=== PATIENT | female | born 1995 | race Caucasian/White ===

== ENCOUNTER 2019-05-08 21:10 | Emergency (ER) | payer BC ==
--- NOTE | 2019-05-08 21:36 | ERPHSYRPT ---
- History of Present Illness Time Seen by Provider: 05/08/19 21:31 Source: patient Exam Limitations: no limitations Patient Subjective Stated Complaint: pt states she has had a toothache since sunday. pain in rt lower jaw radiating up to ear. states she has been having pain in her stomach 04/02- thinks she has taken too much ibuprofen. states she has taken 2-3 200mg tabs at a time, unknonw frequency, total of 20 tabs over last 3 days. Triage Nursing Assessment: pt alert and oriented, answers questions approp. pt ambulatory with staedy gait noted. respirations nonlabored with lungs cta. abd soft and nontender with bowel sounds present. Physician History: 24 y/o white female presents with 3 day h/o worsening dental pain right side. pt has been taking ibuprofen for last 3 days. denies fever. Timing/Duration: gradual onset Severity: moderate ENT Location: dental (right upper and lower back molars) Prearrival Treatment: over the counter meds (ibuprofen only. last dose this a,m) Associated Symptoms: tooth pain Allergies/Adverse Reactions: No Known Drug Allergies Allergy (Verified 05/08/19 21:27) Hx Tetanus, Diphtheria Vaccination/Date Given: No Hx Influenza Vaccination/Date Given: No Hx Pneumococcal Vaccination/Date Given: No Immunizations Up to Date: No - Review of Systems Constitutional: No Symptoms Eyes: No Symptoms Ears, Nose, & Throat: Other (dental pain) Respiratory: No Symptoms Cardiac: No Symptoms Abdominal/Gastrointestinal: No Symptoms Genitourinary Symptoms: No Symptoms Musculoskeletal: No Symptoms Skin: No Symptoms Neurological: No Symptoms Psychological: No Symptoms Endocrine: No Symptoms Hematologic/Lymphatic: No Symptoms Immunological/Allergic: No Symptoms All Other Systems: Reviewed and Negative - Past Medical History Pertinent Past Medical History: No Neurological History: No Pertinent History ENT History: No Pertinent History Respiratory History: Asthma Endocrine Medical History: No Pertinent History, Hypothyroidism Musculoskeletal History: No Pertinent History GI Medical History: No Pertinent History History: No Pertinent History Female Reproductive Disorders: No Pertinent History Other Medical History: polycycstic ovarys,ear problems - Past Surgical History Past Surgical History: Yes Neuro Surgical History: Other Cardiac: No Pertinent History Respiratory: No Pertinent History Gastrointestinal: No Pertinent History Genitourinary: No Pertinent History Musculoskeletal: No Pertinent History Female Surgical History: No Pertinent History Other Surgical History: mine ear clostomia, removal of bone , reconstruction surgery. - Social History Smoking Status: Never smoker Exposure to second hand smoke: No Alcohol Use: None Drug Use: none Patient Lives Alone: No Significant Family History: no pertinent family hx - Female History Hx Last Menstrual Period: irregular Hx Now: No - Nursing Vital Signs Nursing Vital Signs: Initial Vital Signs Temperature 98.5 F 05/08/19 21:16 Pulse Rate 98 H 05/08/19 21:16 Respiratory Rate 18 05/08/19 21:16 Blood Pressure 140/84 05/08/19 21:16 O2 Sat by Pulse Oximetry 98 05/08/19 21:16 Pain Scale Pain Intensity 7 - Physical Exam General Appearance: no apparent distress, alert, anxiety Eye Exam: bilateral eye: normal inspection, PERRL, EOMI Ear Exam: bilateral ear: auricle normal, canal normal, TM normal Nasal Exam: normal inspection Throat Exam: normal, pharynx normal, dental tenderness (right upper and lower back molars) Neck Exam: normal inspection, non-tender, supple, full range of motion, trachea midline Cardiovascular/Respiratory Exam: chest non-tender Abdominal Exam: non-tender Neurologic Exam: alert, oriented x 3, cooperative, 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 follow up with dentist for definitive care. do not take your take pain medications until you are home tonight. Forms: Work/School Release Form Prescriptions: Cephalexin Mh 500 mg [Keflex 500 mg] 500 mg PO TID #21 capsule
[2019-05-08] MEDS ORDERED: NORCO 5/325 MG ONE (21:53)
[2019-05-08] MEDS ORDERED: KEFLEX 500 MG ONE (21:53)
[2019-05-08] MEDS: NORCO 5/325 MG PO ONE (21:57)
[2019-05-08] MEDS: KEFLEX 500 MG PO ONE (21:57)
[2019-05-08 22:23] VITALS: BP 112/57; PULSE 84; O2SAT 97
== END 2019-05-08 22:30 | disposition home or self-care (01) ==
LOC: ED 21:10
DX: K08.89 Other specified disorders of teeth and supporting structures (principal)
CPT/HCPCS: 99283; A9270-GY

== ENCOUNTER 2021-08-22 22:54 | Emergency (ER) | payer BC, OTHER ==
[2021-08-22 23:10] VITALS: O2SAT 98
--- NOTE | 2021-08-22 23:16 | ERPHSYRPT ---
- History of Present Illness Source: patient Exam Limitations: no limitations Patient Subjective Stated Complaint: pt states "I have had a headache since Sunday." Triage Nursing Assessment: pt ambulated into the er; pt is axo x4; c/o headache; pt states 5/10 pain to head; pt states that there was an outbreak of covid at her place of enployment; pupils 3 mm and PERRL; strong BLE pushes; strong BUE process plant operator; pt states she has had the chills all day; pt has dry hacking cough; pt states body aches; diaphoretic; vitals wnl Physician History: 26 yo wf w cough/myalgias/WELDON/subjective fever/nausea wo vomiting/diarrhea/coryza. Pt has mild dysuria and thinks she is possibly . Timing/Duration: other (6days) Cough Quality/Degree: dry cough Possible Cause: no prior episodes Modifying Factors: Improves With: coughing (Worse) Associated Symptoms: chills, cough, headache, nasal congestion, nasal drainage, No chest pain/soreness, No dizziness, No earache, No facial pain, No lightheadedness, No muscle aches, No shortness of breath, No sinus infection, No sore throat, No wheezing Allergies/Adverse Reactions: No Known Drug Allergies Allergy (Verified 08/22/21 22:55) Hx Tetanus, Diphtheria Vaccination/Date Given: No Hx Influenza Vaccination/Date Given: No Hx Pneumococcal Vaccination/Date Given: No Travel Risk - International Travel Have you traveled outside of the country in past 3 weeks: No - Coronavirus Screening Are you exhibiting any of the following symptoms?: Yes Symptoms: Fever, Cough: New Onset, Headaches/Body Aches/Fatigue Close contact with a COVID-19 positive Pt in past 14-21 Days: Yes - Vaccine Status Have you recieved a Covid-19 vaccination: No - Review of Systems Constitutional: No Symptoms, Chills, Fatigue Eyes: No Symptoms Ears, Nose, & Throat: No Symptoms Respiratory: No Symptoms, Cough Cardiac: No Symptoms Abdominal/Gastrointestinal: No Symptoms, Nausea Genitourinary Symptoms: No Symptoms, Dysuria Musculoskeletal: No Symptoms, Arthralgias, Myalgias Skin: No Symptoms Neurological: No Symptoms, Headache Psychological: No Symptoms Endocrine: No Symptoms Hematologic/Lymphatic: No Symptoms Immunological/Allergic: No Symptoms - Past Medical History Pertinent Past Medical History: No Neurological History: No Pertinent History ENT History: No Pertinent History Respiratory History: Asthma Endocrine Medical History: No Pertinent History, Hypothyroidism Musculoskeletal History: No Pertinent History GI Medical History: No Pertinent History History: No Pertinent History Psycho-Social History: No Pertinent History Female Reproductive Disorders: No Pertinent History Other Medical History: ear problems - Past Surgical History Past Surgical History: Yes Neuro Surgical History: Other Cardiac: No Pertinent History Respiratory: No Pertinent History Gastrointestinal: No Pertinent History Genitourinary: No Pertinent History Musculoskeletal: No Pertinent History Female Surgical History: No Pertinent History Other Surgical History: mine ear clostomia, removal of bone , reconstruction surgery. - Social History Smoking Status: Former smoker Exposure to second hand smoke: No Alcohol Use: None Drug Use: none Patient Lives Alone: Yes Significant Family History: no pertinent family hx - Female History Hx Now: No (unsure) - Nursing Vital Signs Nursing Vital Signs: Initial Vital Signs Temperature 99 F 08/22/21 22:56 Pulse Rate 118 H 08/22/21 22:56 Respiratory Rate 16 08/22/21 22:56 Blood Pressure 126/81 08/22/21 22:56 O2 Sat by Pulse Oximetry 98 08/22/21 22:56 Pain Scale Pain Intensity 5 Tachycardia - Physical Exam General Appearance: no apparent distress Eye Exam: PERRL/EOMI, eyes nml inspection Ears, Nose, Throat Exam: normal ENT inspection, TMs normal, pharynx normal, moist mucous membranes Neck Exam: normal inspection, non-tender, supple, full range of motion, No meningismus, No mass, No Brudzinski, No Kernig's Respiratory Exam: normal breath sounds, lungs clear, airway intact, No respiratory distress Cardiovascular Exam: tachycardia, No murmur Gastrointestinal/Abdomen Exam: soft, normal bowel sounds, No tenderness Back Exam: normal inspection, normal range of motion Extremity Exam: normal inspection, normal range of motion Neurologic Exam: alert, oriented x 3, cooperative, 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, normal mood/affect, nml station & gait, sensation nml, No motor deficits, No sensory deficit Skin Exam: normal color, warm, dry Lymphatic Exam: No adenopathy SpO2 Interpretation: normal SpO2: 98 O2 Delivery: Room Air - Course Nursing assessment & vital signs reviewed: Yes Ordered Tests: Active Orders 24 hr Category Date Time Status CULTURE,URINE Stat Lab 08/22/21 23:07 Received HCG,QUALITATIVE URINE Stat Lab 08/22/21 23:06 Completed INFLUENZA A+B LORETTA Stat Lab 08/22/21 23:37 Completed UA W/RFX UR CULTURE Stat Lab 08/22/21 23:07 Completed Medication Summary Discontinued Medications Generic Name Dose Route Start Last Admin Trade Name Gordon PRN Reason Stop Dose Admin Ketorolac Tromethamine 30 mg 08/22/21 23:49 08/22/21 23:57 Ketorolac Tromethamine 30 Mg/Ml Inj IM 08/22/21 23:50 30 mg STAT ONE Administration Ketorolac Tromethamine Confirm 08/22/21 23:53 Ketorolac Tromethamine 30 Mg/Ml Inj Administered 08/22/21 23:54 Dose 30 mg .ROUTE .STK-MED ONE Nitrofurantoin Macrocrystals 100 mg 08/22/21 23:54 08/22/21 23:57 Nitrofurantoin Macro 100 Mg Capsule PO 08/22/21 23:55 100 mg STAT ONE Administration Nitrofurantoin Macrocrystals Confirm 08/22/21 23:56 Nitrofurantoin Macro 100 Mg Capsule Administered 08/22/21 23:57 Dose 100 mg .ROUTE .STK-MED ONE Oseltamivir Phosphate 75 mg 08/22/21 23:53 08/22/21 23:57 Oseltamivir 75 Mg Cap PO 08/22/21 23:54 75 mg STAT ONE Administration Oseltamivir Phosphate Confirm 08/22/21 23:56 Oseltamivir 75 Mg Cap Administered 08/22/21 23:57 Dose 75 mg PO .STK-MED ONE Lab/Rad Data: Laboratory Results 08/22/21 08/22/21 08/22/21 Range/Units 23:37 23:07 23:06 Urine Color YELLOW (YELLOW) Urine Appearance SLIGHTLY CLOUDY (CLEAR) Urine pH 5.0 (5-6) Ur Specific [place] 1.023 (1.005-1.025) Urine Protein NEGATIVE (Negative) Urine Ketones NEGATIVE (NEGATIVE) Urine Blood MODERATE (0-5) Shar/ul Urine Nitrite NEGATIVE (NEGATIVE) Urine Bilirubin NEGATIVE (NEGATIVE) Urine Urobilinogen NEGATIVE (0-1) mg/dL Ur Leukocyte Esterase SMALL (NEGATIVE) Urine WBC (Auto) 11-15 (0-5) /HPF Urine RBC (Auto) 6-10 (0-2) /HPF U Epithel Cells (Auto) FEW (FEW) /HPF Urine Bacteria (Auto) RARE (NEGATIVE) /HPF Urine Mucus (Auto) SLIGHT (NEGATIVE) /HPF Urine Culture Reflexed YES (NO) Urine Glucose NEGATIVE (NEGATIVE) mg/dL Urine HCG, Qual NEGATIVE (Negative) Influenza Type A Ag POSITIVE (NEGATIVE) Influenza Type B Ag NEGATIVE (NEGATIVE) - Progress Progress: improved Progress Note: 08/22/21 23:55 30mg IM Toradol Tamiflu 75mg po Macrobid 100mg po Counseled pt/family regarding: lab results, diagnosis, need for follow-up - Departure Departure Disposition: Home Clinical Impression: UTI (urinary tract infection), Influenza A Condition: Stable Critical Care Time: No Referrals: Provider,Unknown [NON-STAFF PHY W/O PRIVILEGES] - Follow up/PCP as directed Instructions: Flu, Adult (DC), Urinary Tract Infection, Adult (DC) Additional Instructions: Rest/Fluids/Motrin/Tylenol Continue Tamiflu Macrobid twice a day for 5 days Follow up with family MD as needed Forms: Work/School Release Form Prescriptions: Nitrofurantoin Monohyd/M-Cryst [Macrobid 100 mg Capsule] 100 mg PO BID #10 Oseltamivir 75 mg [Tamiflu 75MG Capsule] 75 mg PO BID #10 cap
[2021-08-22 23:37] LABS: Appearance SLIGHTLY CLOUDY (CLEAR); Bacteria RARE /HPF (NEGATIVE); Bilirubin NEGATIVE (NEGATIVE); Blood MODERATE Ery/ul (0-5); Epithelial Cells FEW /HPF (FEW); Glucose NEGATIVE (NEGATIVE); Ketones NEGATIVE (NEGATIVE); Leukocyte Esterase SMALL (NEGATIVE); Mucus SLIGHT /HPF (NEGATIVE); Nitrite NEGATIVE (NEGATIVE); Protein,Urine Dip NEGATIVE (Negative); Specific Gravity 1.023 (1.005-1.025); Urobilinogen NEGATIVE mg/dL (0-1)
[2021-08-22] MEDS ORDERED: TORAdol 30 mg Injection IM ONE (23:49)
[2021-08-22] MEDS ORDERED: TORAdol 30 mg Injection ONE (23:53)
[2021-08-22] MEDS ORDERED: Tamiflu 75MG Capsule PO ONE ×2 (23:53→23:56)
[2021-08-22 23:54] LABS: INFLUENZA A POSITIVE (NEGATIVE); INFLUENZA B NEGATIVE (NEGATIVE)
[2021-08-22] MEDS ORDERED: Macrobid 100MG Capsule PO ONE (23:54)
[2021-08-22] MEDS ORDERED: Macrobid 100MG Capsule ONE (23:56)
[2021-08-23 00:04] VITALS: BP 127/81; PULSE 115
== END 2021-08-23 00:16 | disposition home or self-care (01) ==
LOC: ED 22:54
DX: N39.0 Urinary tract infection, site not specified (principal); J10.1 Influenza due to other identified influenza virus with other respiratory manifestations; R51.9 Headache, unspecified; R50.9 Fever, unspecified
CPT/HCPCS: 81001; 84703; 87086; 87400; 96372; U0003; 99284; J1885; A9270-GY

== ENCOUNTER 2022-02-01 04:06 | Emergency (ER) | payer OTHER ==
[2022-02-01] MEDS ORDERED: MORPHINE SULFATE 4 MG INJ IV ONE (04:16)
[2022-02-01] MEDS ORDERED: Zofran 4 MG/2 ML VIAL IV ONE (04:16)
[2022-02-01] MEDS ORDERED: Sodium Chloride 0.9% 1000 ML 1,000 ML IV STA (04:16)
--- NOTE | 2022-02-01 04:30 | ERPHSYRPT ---
- History of Present Illness Time Seen by Provider: 02/01/22 04:20 Historian: patient Exam Limitations: no limitations Patient Subjective Stated Complaint: Pt states "My stomach has been hurting and I feel nauseous." Triage Nursing Assessment: Pt alert and oriented x3, pt ambulatory to cot by self, pt c/o bilateral upper abd pain and nausea for 1 week, pt denies fever, pt is afebrile currently. Physician History: Patient is a 26-year-old female presents to emergency department for evaluation of generalized abdominal pain. Patient has been experiencing this abdominal pain for approximately 1 week. Patient states the pain has been progressive. Patient states the pain was significant this morning which is why she is here at this time. No trauma. No fever. No specific worsening or improving factors. Patient admits to ongoing nausea. Patient has decreased appetite. Symptoms are moderate in intensity. Patient denies a history of the same. She voices no other complaints or concerns at this time. Timing/Duration: week(s) (1 week) Activities at Onset: none Quality: aching Abdominal Pain Onset Location: generalized abdomen Pain Radiation: no radiation Severity of Pain-Max: moderate Severity of Pain-Current: mild Modifying Factors: Improves With: nothing Associated Symptoms: nausea, No vomiting Previous symptoms: no prior history Allergies/Adverse Reactions: No Known Drug Allergies Allergy (Verified 02/01/22 04:15) Hx Tetanus, Diphtheria Vaccination/Date Given: No Hx Influenza Vaccination/Date Given: No Hx Pneumococcal Vaccination/Date Given: No Immunizations Up to Date: Yes Travel Risk - International Travel Have you traveled outside of the country in past 3 weeks: No - Coronavirus Screening Are you exhibiting any of the following symptoms?: No Close contact with a COVID-19 positive Pt in past 14-21 Days: No - Vaccine Status Have you recieved a Covid-19 vaccination: No - Review of Systems Constitutional: No Symptoms, No Fever, No Chills Eyes: No Symptoms Ears, Nose, & Throat: No Symptoms Respiratory: No Symptoms, No Cough, No Dyspnea Cardiac: No Symptoms, No Chest Pain, No Edema, No Syncope Abdominal/Gastrointestinal: No Symptoms, No Abdominal Pain, No Nausea, No Vomi ting, No Diarrhea Genitourinary Symptoms: No Symptoms, No Dysuria Musculoskeletal: No Symptoms, No Back Pain, No Neck Pain Skin: No Symptoms, No Rash Neurological: No Symptoms, No Dizziness, No Focal Weakness, No Sensory Changes Psychological: No Symptoms Endocrine: No Symptoms Hematologic/Lymphatic: No Symptoms Immunological/Allergic: No Symptoms All Other Systems: Reviewed and Negative - Past Medical History Pertinent Past Medical History: No Neurological History: No Pertinent History ENT History: No Pertinent History Respiratory History: Asthma Endocrine Medical History: No Pertinent History, Hypothyroidism Musculoskeletal History: No Pertinent History GI Medical History: No Pertinent History History: No Pertinent History Psycho-Social History: No Pertinent History Female Reproductive Disorders: No Pertinent History Other Medical History: ear problems - Past Surgical History Past Surgical History: Yes Neuro Surgical History: Other Cardiac: No Pertinent History Respiratory: No Pertinent History Gastrointestinal: No Pertinent History Genitourinary: No Pertinent History Musculoskeletal: No Pertinent History Female Surgical History: No Pertinent History Other Surgical History: mine ear clostomia, removal of bone , reconstruction surgery. - Social History Smoking Status: Never smoker Exposure to second hand smoke: No Alcohol Use: None Drug Use: none Patient Lives Alone: No Significant Family History: no pertinent family hx - Female History Hx Last Menstrual Period: 01/31/2022 Hx Now: No - Nursing Vital Signs Nursing Vital Signs: Initial Vital Signs Temperature 98.3 F 02/01/22 04:17 Pulse Rate 79 02/01/22 04:17 Respiratory Rate 16 02/01/22 04:17 Blood Pressure 133/71 02/01/22 04:17 O2 Sat by Pulse Oximetry 98 02/01/22 04:17 Pain Scale Pain Intensity 4 - Physical Exam General Appearance: no apparent distress, alert Eye Exam: PERRL/EOMI, eyes nml inspection Ears, Nose, Throat Exam: normal ENT inspection, TMs normal, pharynx normal, moist mucous membranes Neck Exam: normal inspection, non-tender, supple, full range of motion Respiratory Exam: normal breath sounds, lungs clear, airway intact, No respir atory distress Cardiovascular Exam: regular rate/rhythm, normal heart sounds, normal peripheral pulses Gastrointestinal/Abdomen Exam: soft, other (Generalized abdominal tenderness.), No tenderness, No mass Back Exam: normal inspection, normal range of motion, No CVA tenderness, No vertebral tenderness Extremity Exam: normal inspection, normal range of motion, pelvis stable Neurologic Exam: alert, oriented x 3, cooperative, normal mood/affect, nml cerebellar function, sensation nml, No motor deficits Skin Exam: normal color, warm, dry Lymphatic Exam: No adenopathy SpO2 Interpretation: normal SpO2: 98 O2 Delivery: Room Air - Course Nursing assessment & vital signs reviewed: Yes - CT Exams Abdomen/Pelvis CT Interpretation: Tele-radiologist Report (Mild nonspecific bowel wall thickening involving multiple small bowel loops favoring underdistention. Multiple nonspecific subcentimeter mesenteric lymph nodes. Dextroscoliosis of the thoracic spine. Fat-containing umbilical hernia. Mild hepatomegaly) Ordered Tests: Active Orders 24 hr Category Date Time Status IV Insertion STAT Care 02/01/22 04:16 Active ABDOMEN AND PELVIS W/0 CONTRAS [CT] Stat Exams 02/01/22 04:16 Taken CBC W DIFF Stat Lab 02/01/22 04:37 Completed CMP Stat Lab 02/01/22 04:37 Completed CULTURE,URINE Stat Lab 02/01/22 04:37 Received HCG,QUALITATIVE URINE Stat Lab 02/01/22 04:37 Completed LIPASE Stat Lab 02/01/22 04:37 Completed TROPONIN Q3H Lab 02/01/22 04:37 Completed TROPONIN Q3H Lab 02/01/22 07:30 Ordered TROPONIN Q3H Lab 02/01/22 10:30 Ordered TROPONIN Q3H Lab 02/01/22 13:30 Ordered TROPONIN Q3H Lab 02/01/22 16:30 Ordered UA W/RFX CULTURE Stat Lab 02/01/22 04:37 Completed Medication Summary Discontinued Medications Generic Name Dose Route Start Last Admin Trade Name Freq PRN Reason Stop Dose Admin Sodium Chloride 1,000 mls @ 999 mls/hr 02/01/22 04:16 02/01/22 04:57 Sodium Chloride 0.9% 1000 Ml IV 02/01/22 05:16 999 mls/hr .Q1H1M STA Administration Sodium Chloride Confirm 02/01/22 04:55 Sodium Chloride 0.9% 1000 Ml Administered 02/01/22 04:56 Dose 1,000 mls @ ud .ROUTE .STK-MED ONE Morphine Sulfate 4 mg 02/01/22 04:16 02/01/22 04:57 Morphine Sulfate 4 Mg/Ml Injection IV 02/01/22 04:17 4 mg STAT ONE Administration Morphine Sulfate Confirm 02/01/22 04:54 Morphine Sulfate 4 Mg/Ml Injection Administered 02/01/22 04:55 Dose 4 mg .ROUTE .STK-MED ONE Nitrofurantoin Macrocrystals 100 mg 02/01/22 05:37 Nitrofurantoin Macro 100 Mg Capsule PO 02/01/22 05:38 STAT ONE Ondansetron HCl 4 mg 02/01/22 04:16 02/01/22 04:57 Ondansetron Hcl 4 Mg/2 Ml Vial IV 02/01/22 04:17 4 mg STAT ONE Administration Ondansetron HCl Confirm 02/01/22 04:54 Ondansetron Hcl 4 Mg/2 Ml Vial Administered 02/01/22 04:55 Dose 4 mg .ROUTE .STK-MED ONE Lab/Rad Data: Laboratory Result Diagrams 02/01/22 04:37 02/01/22 04:37 Laboratory Results 02/01/22 02/01/22 02/01/22 Range/Units 04:37 04:37 04:37 WBC (4.0-10.5) K/mm3 RBC (4.1-5.4) M/mm3 Hgb (12.0-16.0) gm/dl Hct (35-47) % MCV (78-100) fl MCH (26-32) pg MCHC (32-36) g/dl RDW (11.5-14.0) % Plt Count (150-450) K/mm3 MPV (7.5-11.0) fl Gran % (36.0-66.0) % Eos # (Auto) (0-0.5) Absolute Lymphs (auto) (1.0-4.6) Absolute Monos (auto) (0.0-1.3) Lymphocytes % (24.0-44.0) % Monocytes % (0.0-12.0) % Eosinophils % (0.00-5.0) % Basophils % (0.0-0.4) % Absolute Granulocytes (1.4-6.9) Basophils # (0-0.4) Sodium 140 (137-145) mmol/L Potassium 3.7 (3.5-5.1) mmol/L Chloride 103 (98-107) mmol/L Carbon Dioxide 28 (22-30) mmol/L Anion Gap 12.4 (5-15) MEQ/L BUN 15 (7-17) mg/dL Creatinine 0.71 (0.52-1.04) mg/dL Estimated GFR > 60.0 ML/MIN Glucose 104 (74-106) mg/dL Calcium 9.1 (8.4-10.2) mg/dL Total Bilirubin 0.50 (0.2-1.3) mg/dL AST 26 (14-36) U/L ALT 19 (0-35) U/L Alkaline Phosphatase 102 (38-126) U/L Troponin I < 0.012 (0.000-0.034) ng/mL Serum Total Protein 7.7 (6.3-8.2) g/dL Albumin 4.2 (3.5-5.0) g/dL Lipase 51 (23-300) U/L Urinalys Dipstick Clnc MAIN LAB Urine Color YELLOW (YELLOW) Urine Appearance CLEAR (CLEAR) Urine pH 7.0 (5-6) Ur Specific [place] >=1.030 (1.005-1.025) POC Urine Protein Conf NEGATIVE (Negative) Urine Ketones NEGATIVE (NEGATIVE) Urine Nitrite NEGATIVE (NEGATIVE) Urine Bilirubin NEGATIVE (NEGATIVE) Urine Urobilinogen 0.2 (0-1) mg/dL Urine Leukocytes TRACE (NEGATIVE) Urine WBC (Auto) 11-15 (0-5) /HPF Urine RBC (Auto) 3-5 (0-2) /HPF U Epithel Cells (Auto) FEW (FEW) /HPF Urine Bacteria (Auto) NONE (NEGATIVE) /HPF Urine RBC MODERATE (0-5) Shar/ul Urine Mucus (Auto) SLIGHT (NEGATIVE) /HPF Ur Culture Indicated? YES Urine Glucose NEGATIVE (NEGATIVE) mg/dL Urine HCG, Qual (Negative) 02/01/22 02/01/22 Range/Units 04:37 04:37 WBC 11.3 H (4.0-10.5) K/mm3 RBC 4.68 (4.1-5.4) M/mm3 Hgb 13.4 (12.0-16.0) gm/dl Hct 41.5 (35-47) % MCV 88.7 (78-100) fl MCH 28.6 (26-32) pg MCHC 32.3 (32-36) g/dl RDW 13.6 (11.5-14.0) % Plt Count 332 (150-450) K/mm3 MPV 10.7 (7.5-11.0) fl Gran % 68.9 H (36.0-66.0) % Eos # (Auto) 0.12 (0-0.5) Absolute Lymphs (auto) 2.51 (1.0-4.6) Absolute Monos (auto) 0.86 (0.0-1.3) Lymphocytes % 22.2 L (24.0-44.0) % Monocytes % 7.6 (0.0-12.0) % Eosinophils % 1.1 (0.00-5.0) % Basophils % 0.2 (0.0-0.4) % Absolute Granulocytes 7.80 H (1.4-6.9) Basophils # 0.02 (0-0.4) Sodium (137-145) mmol/L Potassium (3.5-5.1) mmol/L Chloride (98-107) mmol/L Carbon Dioxide (22-30) mmol/L Anion Gap (5-15) MEQ/L BUN (7-17) mg/dL Creatinine (0.52-1.04) mg/dL Estimated GFR ML/MIN Glucose (74-106) mg/dL Calcium (8.4-10.2) mg/dL Total Bilirubin (0.2-1.3) mg/dL AST (14-36) U/L ALT (0-35) U/L Alkaline Phosphatase (38-126) U/L Troponin I (0.000-0.034) ng/mL Serum Total Protein (6.3-8.2) g/dL Albumin (3.5-5.0) g/dL Lipase (23-300) U/L Urinalys Dipstick Clnc Urine Color (YELLOW) Urine Appearance (CLEAR) Urine pH (5-6) Ur Specific [place] (1.005-1.025) POC Urine Protein Conf (Negative) Urine Ketones (NEGATIVE) Urine Nitrite (NEGATIVE) Urine Bilirubin (NEGATIVE) Urine Urobilinogen (0-1) mg/dL Urine Leukocytes (NEGATIVE) Urine WBC (Auto) (0-5) /HPF Urine RBC (Auto) (0-2) /HPF U Epithel Cells (Auto) (FEW) /HPF Urine Bacteria (Auto) (NEGATIVE) /HPF Urine RBC (0-5) Shar/ul Urine Mucus (Auto) (NEGATIVE) /HPF Ur Culture Indicated? Urine Glucose (NEGATIVE) mg/dL Urine HCG, Qual NEGATIVE (Negative) - Progress Progress: improved Progress Note: Patient reassessed. Pain resolved. Work-up reveals urinary tract infection. Patient also has small mesenteric adenitis. Patient received a dose of Macrobid in our ED. A prescription for the same was forwarded to patient's pharmacy. Rigoberto hammond agrees to follow-up with primary care doctor within 48 hours for reevaluation. Grandmother bedside. They voiced no other complaints or concerns at this time. Will discharge home. Portions of this note were created with voice recognition technology. There may be grammatical, spelling, punctuation or sound alike errors 02/01/22 05:42 Counseled pt/family regarding: lab results, diagnosis, need for follow-up, rad results - Departure Departure Disposition: Home Clinical Impression: Abdominal pain, UTI (urinary tract infection), Hepatomegaly, Dextroscoliosis of thoracic spine, Fat-containing umbilical hernia Condition: Stable Critical Care Time: No Referrals: LORENE GARVIN, [facility] [Primary Care Provider] - Follow up/PCP as directed Additional Instructions: Discharge/Care Plan BRANDI PHAM was seen on 02/01/22 in the Emergency Room. The patient wa s counseled regarding Diagnosis,Lab results, Imaging studies, need for follow up and when to return to the Emergency Room. Prescriptions given: Discharge Note I have spoken with the patient and/or caregivers. I have explained the patient's condition, diagnosis and treatment plan based on the information available to me at this time. I have answered the patient's and/or caregiver's questions and addressed any concerns. The patient and/or caregivers have as good understanding of the patient's diagnosis, condition and treatment plan as can be expected at this point. The vital signs have been stable. The patient's condition is stable and appropriate for discharge from the emergency department. The patient will pursue further outpatient evaluation with the primary care physician or other designated or consulting physician as outlined in the discharge instructions. The patient and/or caregivers are agreeable to this plan of care and follow-up instructions have been explained in detail. The patient and/or caregivers have received these instruction. The patient/and or caregivers are aware that any significant change in condition or worsening of symptoms should prompt an immediate return to this or the closest emergency department or call 911. Prescriptions: Nitrofurantoin Macro 100 mg [Macrobid 100MG Capsule] 100 mg PO BID 7 Days #14 cap
[2022-02-01 04:41] LABS: Basophil (Absolute #) 0.02 (0-0.4); Eosinophil % 1.1 % (0.00-5.0); Eosinophil (Absolute #) 0.12 (0-0.5); Hematocrit 41.5 % (35-47); Hemoglobin 13.4 gm/dl (12.0-16.0); Lymphocyte (Absolute #) 2.51 (1.0-4.6); Lymphocytes % 22.2 % (24.0-44.0); Mean Cell Volume 88.7 fl (78-100); Mean Corpuscular Hemoglobin 28.6 pg (26-32); Mean Corpuscular Hgb Concent. 32.3 g/dl (32-36); Mean Platelet Volume 10.7 fl (7.5-11.0); Monocyte (Absolute #) 0.86 (0.0-1.3); Monocytes % 7.6 % (0.0-12.0); Neutrophil % 68.9 % (36.0-66.0); Platelet Count 332 K/mm3 (150-450); Red Blood Count 4.68 M/mm3 (4.1-5.4); Red Cell Distribution Width 13.6 % (11.5-14.0); White Blood Count 11.3 K/mm3 (4.0-10.5)
[2022-02-01 04:51] LABS: Epithelial Cells FEW /HPF (FEW); Mucus SLIGHT /HPF (NEGATIVE)
[2022-02-01 04:52] LABS: Appearance CLEAR (CLEAR); Bilirubin NEGATIVE (NEGATIVE); Glucose NEGATIVE (NEGATIVE); Ketones NEGATIVE (NEGATIVE); Nitrite NEGATIVE (NEGATIVE); Protein,Urine Dip NEGATIVE (Negative); RBC MODERATE Ery/ul (0-5); Specific Gravity >=1.030 (1.005-1.025); Urobilinogen 0.2 mg/dL (0-1)
[2022-02-01 04:53] LABS: ALBUMIN 4.2 g/dL (3.5-5.0); ALKALINE PHOSPHATASE 102 U/L (38-126); ANION GAP 12.4 MEQ/L (5-15); BLOOD UREA NITROGEN 15 mg/dL (7-17); CHLORIDE 103 mmol/L (98-107); Calcium 9.1 mg/dL (8.4-10.2); Carbon Dioxide 28 mmol/L (22-30); Creatinine 1 0.71 mg/dL (0.52-1.04); Dipstick done @ ? MAIN LAB; EST GLOMERULAR FILTRATION RATE > 60.0 ML/MIN; Glucose 104 mg/dL (74-106); LIPASE 51 U/L (23-300); Potassium 3.7 mmol/L (3.5-5.1); SGOT/AST 26 U/L (14-36); SGPT/ALT 19 U/L (0-35); SODIUM 140 mmol/L (137-145); Total Protein 7.7 g/dL (6.3-8.2); Urine Cultured Indicated? YES
[2022-02-01] MEDS ORDERED: MORPHINE SULFATE 4 MG INJ ONE (04:54)
[2022-02-01] MEDS ORDERED: Zofran 4 MG/2 ML VIAL ONE (04:54)
[2022-02-01] MEDS ORDERED: Sodium Chloride 0.9% 1000 ML 1,000 ML ONE (04:55)
[2022-02-01] MEDS ORDERED: Macrobid 100MG Capsule PO ONE (05:37)
[2022-02-01] MEDS ORDERED: Macrobid 100MG Capsule ONE (05:41)
[2022-02-01 05:45] VITALS: BP 116/73; PULSE 94; O2SAT 96
--- NOTE | 2022-02-01 09:14 | XRAY ---
Indication: Abdomen pain. Multiple contiguous axial images obtained through the abdomen and pelvis without contrast. Comparison: July 16, 2015. Lung bases remain clear. Heart not enlarged. Stomach is distended with food/fluid. Noncontrasted stomach and bowel loops nonobstructed with normal appendix. No free fluid/air. Remaining liver, gallbladder, pancreas, spleen, adrenal glands, kidneys, ureters, bladder, uterus, and aorta are unremarkable for noncontrast exam. Osseous structures intact again with mild dextroscoliosis centered at L1-L2. No ventral or inguinal hernias. Impression: 1. Stable scoliosis. 2. Remaining CT abdomen/pelvis without contrast exam is negative. Comment: Preliminary interpretation made by [facility]. No critical discrepancy.
== END 2022-02-01 05:56 | disposition home or self-care (01) ==
LOC: ED 04:06
DX: N39.0 Urinary tract infection, site not specified (principal); R10.84 Generalized abdominal pain; R16.0 Hepatomegaly, not elsewhere classified; M41.9 Scoliosis, unspecified; K42.9 Umbilical hernia without obstruction or gangrene; R11.0 Nausea
CPT/HCPCS: 36000; 36415; 74176; 80053; 81015; 83690; 84484; 84703; 85025; 87086; 96360; 96374; 96375; 99284; J2270; J2405; A9270-GY

== ENCOUNTER 2023-10-16 18:02 | Emergency (ER) | payer BC, OTHER ==
[2023-10-16 18:17] VITALS: TEMP 97.6
[2023-10-16 18:38] LABS: Absolute Neutrophil Ct (ANC) 6.17 x10^3/uL (1.4-6.9); BASOPHIL % 0.2 % (0.0-0.4); Basophil (Absolute #) 0.02 x10^3/uL (0-0.4); Eosinophil (Absolute #) 0.24 x10^3/uL (0-0.5); Hematocrit 38.5 % (35-47); Hemoglobin 12.5 g/dL (12.0-16.0); IMMATURE GRAN # 0.03 x10^3u/L (0.00-0.03); IMMATURE GRAN % 0.4 % (0.00-0.4); Lymphocyte (Absolute #) 0.86 x10^3/uL (1.0-4.6); Lymphocytes % 10.7 % (24.0-44.0); Mean Cell Volume 87.3 fL (78-100); Mean Corpuscular Hemoglobin 28.3 pg (26-32); Mean Corpuscular Hgb Concent. 32.5 g/dL (32-36); Mean Platelet Volume 9.9 fL (7.5-11.0); Monocyte (Absolute #) 0.72 x10^3/uL (0.0-1.3); Neutrophil % 76.7 % (36.0-66.0); Platelet Count 263 x10^3/uL (150-450); Red Blood Count 4.41 x10^6/uL (4.1-5.4); Red Cell Distribution Width 12.7 % (11.5-14.0)
--- NOTE | 2023-10-16 18:41 | ERPHSYRPT ---
- History of Present Illness Time Seen by Provider: 10/16/23 18:20 Source: patient Exam Limitations: no limitations Patient Subjective Stated Complaint: Chest pain Triage Nursing Assessment: Patient ambulated back to ED and transferred self to bed. Patient A+O X3. Patient's skin pink, warm and dry. Patient complains of chest pain that started earlier today worse when lying down 6/10. Patient also complains of headache and nausea. Physician History: Patient is a 28-year-old female presents to our emergency department for evaluation of chest pain and headache. Symptoms started today. Patient states chest pain is worse when she lays flat and improves when she sits up. No associated nausea vomiting or diaphoresis. No history of PE DVT. Patient is not on control. Patient did state that she attempted to treat herself with albuterol however no significant improvement. Symptoms are mild to moderate in intensity. No specific worsening or improving factors. Patient voices no other complaints or concerns at this time. Portions of this note were created with voice recognition technology. There may be grammatical, spelling, punctuation or sound alike errors Timing/Duration: today Severity: moderate Modifying Factors: Improves With: other (Pain worse lying flat. Pain improved sitting up) Associated Symptoms: headaches Allergies/Adverse Reactions: No Known Drug Allergies Allergy (Verified 10/16/23 18:06) Home Medications: No Reportable Medications [No Reported Medications] 10/16/23 [History] Hx Tetanus, Diphtheria Vaccination/Date Given: No Hx Influenza Vaccination/Date Given: No Hx Pneumococcal Vaccination/Date Given: No Immunizations Up to Date: Yes Travel Risk - International Travel Have you traveled outside of the country in past 3 weeks: No - Coronavirus Screening Are you exhibiting any of the following symptoms?: No Close contact with a COVID-19 positive Pt in past 14-21 Days: No - Vaccine Status Have you recieved a Covid-19 vaccination: No - Review of Systems Constitutional: No Symptoms, No Fever, No Chills Eyes: No Symptoms Ears, Nose, & Throat: No Symptoms Respiratory: No Symptoms, No Cough, No Dyspnea Cardiac: No Symptoms, No Chest Pain, No Edema, No Syncope Abdominal/Gastrointestinal: No Symptoms, No Abdominal Pain, No Nausea, No Vomiting, No Diarrhea Genitourinary Symptoms: No Symptoms, No Dysuria Musculoskeletal: No Symptoms, No Back Pain, No Neck Pain Skin: No Symptoms, No Rash Neurological: No Symptoms, No Dizziness, No Focal Weakness, No Sensory Changes Psychological: No Symptoms Endocrine: No Symptoms Hematologic/Lymphatic: No Symptoms Immunological/Allergic: No Symptoms All Other Systems: Reviewed and Negative - Past Medical History Pertinent Past Medical History: Yes Neurological History: No Pertinent History ENT History: No Pertinent History Respiratory History: Asthma Endocrine Medical History: No Pertinent History, Hypothyroidism Musculoskeletal History: No Pertinent History GI Medical History: No Pertinent History History: No Pertinent History Psycho-Social History: Depression Female Reproductive Disorders: No Pertinent History Other Medical History: ear problems - Past Surgical History Past Surgical History: Yes Neuro Surgical History: Other Cardiac: No Pertinent History Respiratory: No Pertinent History Gastrointestinal: No Pertinent History Genitourinary: No Pertinent History Musculoskeletal: No Pertinent History Female Surgical History: No Pertinent History Other Surgical History: 4 ear surgeries - Social History Smoking Status: Never smoker Exposure to second hand smoke: No Alcohol Use: None Drug Use: none Patient Lives Alone: No Significant Family History: no pertinent family hx - Female History Hx Last Menstrual Period: week ago Hx Now: No - Nursing Vital Signs Nursing Vital Signs: Initial Vital Signs Temperature 97.6 F 10/16/23 18:07 Pulse Rate 114 H 10/16/23 18:07 Respiratory Rate 18 10/16/23 18:07 Blood Pressure 121/78 10/16/23 18:07 O2 Sat by Pulse Oximetry 99 10/16/23 18:07 Pain Scale Pain Intensity 3 - Physical Exam General Appearance: no apparent distress, alert Eye Exam: PERRL/EOMI, eyes nml inspection Ears, Nose, Throat Exam: normal ENT inspection, TMs normal, pharynx normal, moist mucous membranes Neck Exam: normal inspection, non-tender, supple, full range of motion Respiratory Exam: normal breath sounds, lungs clear, airway intact, No respiratory distress Cardiovascular Exam: regular rate/rhythm, normal heart sounds, normal peripheral pulses Gastrointestinal/Abdomen Exam: soft, normal bowel sounds, No tenderness, No mass Back Exam: normal inspection, normal range of motion, No CVA tenderness, No vertebral tenderness Extremity Exam: normal inspection, normal range of motion, pelvis stable Neurologic Exam: alert, oriented x 3, cooperative, normal mood/affect, nml cerebellar function, nml station & gait, sensation nml, No motor deficits Skin Exam: normal color, warm, dry, No rash Lymphatic Exam: No adenopathy SpO2 Interpretation: normal SpO2: 98 O2 Delivery: Room Air - Course Nursing assessment & vital signs reviewed: Yes EKG Interpreted by Me: RATE, Sinus Tach, NORMAL AXIS, NORMAL INTERVALS - CT Exams Abdomen/Pelvis CT Interpretation: Tele-radiologist Report (Dextroscoliosis, bulky ovaries) Chest CT Interpretation: Tele-radiologist Report (Eventration of diaphragm) Ordered Tests: Active Orders 24 hr Category Date Time Status Fur Operator STAT Care 10/16/23 18:23 Active EKG-ER Only STAT Care 10/16/23 18:23 Active Pulse Oximetry (ED) STAT Care 10/16/23 18:23 Active ABDOMEN AND PELVIS W CONTRAST [CT] Stat Exams 10/16/23 23:00 Completed CHEST 1 VIEW (PORTABLE) Stat Exams 10/16/23 20:06 Completed CHEST WITH CONTRAST [CT] Routine Exams 10/16/23 22:53 Completed CBC W DIFF Stat Lab 10/16/23 18:35 Completed CMP Stat Lab 10/16/23 18:35 Completed D-DIMER QUANTITATIVE Stat Lab 10/16/23 18:35 Completed HCG QUALITATIVE, SERUM Stat Lab 10/16/23 19:35 Completed TROPONIN Q4H Lab 10/16/23 18:35 Completed TROPONIN Q4H Lab 10/16/23 21:04 Completed TROPONIN Q4H Lab 10/17/23 02:30 Ordered Medication Summary Discontinued Medications Generic Name Dose Route Start Last Admin Trade Name Freq PRN Reason Stop Dose Admin Acetaminophen 1,000 mg 10/16/23 22:37 10/16/23 22:41 Acetaminophen 500 Mg Tablet PO 10/16/23 22:38 1,000 mg STAT STA Administration Acetaminophen Confirm 10/16/23 22:38 Acetaminophen 500 Mg Tablet Administered 10/16/23 22:39 Dose 1,000 mg .ROUTE .STK-MED ONE Sodium Chloride 1,000 mls @ 999 mls/hr 10/16/23 22:31 10/17/23 00:04 Sodium Chloride 0.9% 1000 Ml IV 10/16/23 23:31 Infused .Q1H1M STA Infusion Sodium Chloride Confirm 10/16/23 22:33 Sodium Chloride 0.9% 1000 Ml Administered 10/16/23 22:34 Dose 1,000 mls @ ud .ROUTE .STK-MED ONE Lab/Rad Data: Laboratory Result Diagrams 10/16/23 18:35 10/16/23 18:35 Laboratory Results 10/16/23 10/16/23 10/16/23 Range/Units 21:04 19:35 18:35 WBC (4.0-10.5) x10^3/uL RBC (4.1-5.4) x10^6/uL Hgb (12.0-16.0) g/dL Hct (35-47) % MCV (78-100) fL MCH (26-32) pg MCHC (32-36) g/dL RDW (11.5-14.0) % Plt Count (150-450) x10^3/uL MPV (7.5-11.0) fL Gran % (36.0-66.0) % Immature Gran % (Auto) (0.00-0.4) % Nucleat RBC Rel Count (0.00-0.1) % Eos # (Auto) (0-0.5) x10^3/uL Immature Gran # (Auto) (0.00-0.03) x10^3u/L Absolute Lymphs (auto) (1.0-4.6) x10^3/uL Absolute Monos (auto) (0.0-1.3) x10^3/uL Absolute Nucleated RBC (0.00-0.01) x10^3u/L Lymphocytes % (24.0-44.0) % Monocytes % (0.0-12.0) % Eosinophils % (0.00-5.0) % Basophils % (0.0-0.4) % Absolute Granulocytes (1.4-6.9) x10^3/uL Basophils # (0-0.4) x10^3/uL D-Dimer (0.0-0.50) mg/L Sodium (137-145) mmol/L Potassium (3.5-5.1) mmol/L Chloride (98-107) mmol/L Carbon Dioxide (22-30) mmol/L Anion Gap (5-15) MEQ/L BUN (7-17) mg/dL Creatinine (0.52-1.04) mg/dL Estimated GFR ML/MIN Glucose (74-106) mg/dL Calcium (8.4-10.2) mg/dL Total Bilirubin (0.2-1.3) mg/dL AST (14-36) U/L ALT (0-35) U/L Alkaline Phosphatase (38-126) U/L Troponin I < 0.012 < 0.012 (0.000-0.034) ng/mL Serum Total Protein (6.3-8.2) g/dL Albumin (3.5-5.0) g/dL Serum HCG, Qual NEGATIVE (NEGATIVE) 10/16/23 10/16/23 10/16/23 Range/Units 18:35 18:35 18:35 WBC 8.0 (4.0-10.5) x10^3/uL RBC 4.41 (4.1-5.4) x10^6/uL Hgb 12.5 (12.0-16.0) g/dL Hct 38.5 (35-47) % MCV 87.3 (78-100) fL MCH 28.3 (26-32) pg MCHC 32.5 (32-36) g/dL RDW 12.7 (11.5-14.0) % Plt Count 263 (150-450) x10^3/uL MPV 9.9 (7.5-11.0) fL Gran % 76.7 H (36.0-66.0) % Immature Gran % (Auto) 0.4 (0.00-0.4) % Nucleat RBC Rel Count 0.0 (0.00-0.1) % Eos # (Auto) 0.24 (0-0.5) x10^3/uL Immature Gran # (Auto) 0.03 (0.00-0.03) x10^3u/L Absolute Lymphs (auto) 0.86 L (1.0-4.6) x10^3/uL Absolute Monos (auto) 0.72 (0.0-1.3) x10^3/uL Absolute Nucleated RBC 0.00 (0.00-0.01) x10^3u/L Lymphocytes % 10.7 L (24.0-44.0) % Monocytes % 9.0 (0.0-12.0) % Eosinophils % 3.0 (0.00-5.0) % Basophils % 0.2 (0.0-0.4) % Absolute Granulocytes 6.17 (1.4-6.9) x10^3/uL Basophils # 0.02 (0-0.4) x10^3/uL D-Dimer 0.49 (0.0-0.50) mg/L Sodium 136 L (137-145) mmol/L Potassium 4.1 (3.5-5.1) mmol/L Chloride 103 (98-107) mmol/L Carbon Dioxide 27 (22-30) mmol/L Anion Gap 10.3 (5-15) MEQ/L BUN 18 H (7-17) mg/dL Creatinine 0.79 (0.52-1.04) mg/dL Estimated GFR 105.1 ML/MIN Glucose 81 (74-106) mg/dL Calcium 9.0 (8.4-10.2) mg/dL Total Bilirubin 0.30 (0.2-1.3) mg/dL AST 30 (14-36) U/L ALT 27 (0-35) U/L Alkaline Phosphatase 84 (38-126) U/L Troponin I (0.000-0.034) ng/mL Serum Total Protein 6.9 (6.3-8.2) g/dL Albumin 3.8 (3.5-5.0) g/dL Serum HCG, Qual (NEGATIVE) - Progress Progress: improved Progress Note: 28-year-old female presents emergency department for evaluation of chest pain. Physical exam essentially nonremarkable. However we observed that patient's heart rate was somewhat elevated. CBC CMP essentially nonremarkable. D-dimer negative. Troponin negative x 2. Chest x-ray revealed elevated right hemidiaphragm. Radiologist advised follow-up CAT scan. CT abdomen pelvis ordered. 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 CT abdomen pelvis reveals dextroscoliosis and bulky ovaries. Radiologist advised follow-up outpatient ultrasound. Findings were discussed with patient and her mother. They will obtain an outpatient ultrasound of her ovaries. If patient continues to experience some chest discomfort a outpatient echocardiogram may be of benefit. Patient has no active chest pain at this time. Patient sleeping in the room. Patient heart rate at rest is 103. Patient voices no other complaints or concerns at this time. Portions of this note were created with voice recognition technology. There may be grammatical, spelling, punctuation or sound alike errors Complexity problem addressed is moderate acute complicated No critical care time Complexity of data reviewed and analyzed is moderate. Test ordered test reviewed. Results analyzed and correlated clinically with history and physical examination. Risk of complication and or risk of morbidity/mortality of patient management is moderate Vital stable. Time spent to discharge patient is approximately 20 minutes. Plan of care established for shared decision making. No social determinants of health present impede follow-up. Portions of this note were created with voice recognition technology. There may be grammatical, spelling, punctuation or sound alike errors Counseled pt/family regarding: lab results, diagnosis, rad results - Departure Departure Disposition: Home Clinical Impression: Diaphragm, eventration, Chest pain Condition: Stable Critical Care Time: No Referrals: AMADOU HODGSON NP [Primary Care Provider] - Follow up/PCP as directed Additional Instructions: He will require an outpatient ultrasound of your ovaries to further evaluate abnormalities observed on today's CAT scan. Please follow-up with your family doctor to obtain this outpatient ultrasound within a week Discharge/Care Plan BRANDI PHAM was seen on 10/17/23 in the Emergency Room. The patient was counseled regarding Diagnosis,Lab results, Imaging studies, need for follow up and when to return to the Emergency Room. Prescriptions given: Discharge Note I have spoken with the patient and/or caregivers. I have explained the patient's condition, diagnosis and treatment plan based on the information available to me at this time. I have answered the patient's and/or caregiver's questions and addressed any concerns. The patient and/or caregivers have as good understanding of the patient's diagnosis, condition and treatment plan as can be expected at this point. The vital signs have been stable. The patient's condition is stable and appropriate for discharge from the emergency department. The patient will pursue further outpatient evaluation with the primary care physician or other designated or consulting physician as outlined in the discharge instructions. The patient and/or caregivers are agreeable to this plan of care and follow-up instructions have been explained in detail. The patient and/or caregivers have received these instruction. The patient/and or caregivers are aware that any significant change in condition or worsening of symptoms should prompt an immediate return to this or the closest emergency department or call 911.
[2023-10-16 18:52] LABS: ALBUMIN 3.8 g/dL (3.5-5.0); ANION GAP 10.3 MEQ/L (5-15); BILIRUBIN,TOTAL 0.3 mg/dL (0.2-1.3); Creatinine 1 0.79 mg/dL (0.52-1.04); EST GLOMERULAR FILTRATION RATE 105.1 ML/MIN; Potassium 4.1 mmol/L (3.5-5.1); Total Protein 6.9 g/dL (6.3-8.2)
[2023-10-16] MEDS ORDERED: Sodium Chloride 0.9% 1000 ML 1,000 ML IV STA (22:31)
[2023-10-16] MEDS ORDERED: Sodium Chloride 0.9% 1000 ML 1,000 ML ONE (22:33)
--- NOTE | 2023-10-16 22:35 | XRAY ---
CLINICAL HISTORY: chest pain TECHNIQUE: Chest X-ray showing 1 view: AP view. COMPARISON: None. FINDINGS: Marked upward displacement of right hemidiaphragm is noted. No consolidation or soft tissue nodular infiltration is seen in both lungs. Both hilar contours are intact. Both costophrenic recesses are clear. Cardiac size can not be commented. Retrocardiac spaces are clear. No significant pathology is identified in the visualized skeleton. IMPRESSION: 1. Marked upward displacement of right hemidiaphragm is noted. No definite consolidation or soft tissue nodular infiltration is seen on either side. 2. CT is further advised to rule out the underlying etiology. Electronically Signed by: Greg Ignacio MD. (10/16/2023 22:31:16 EST)
[2023-10-16] MEDS ORDERED: TYLENOL EXTRA STRENGTH 500 MG PO STA (22:37)
[2023-10-16] MEDS ORDERED: TYLENOL EXTRA STRENGTH 500 MG ONE (22:38)
[2023-10-16 22:48] LABS: HCG SERUM TEST NEGATIVE (NEGATIVE)
--- NOTE | 2023-10-17 00:15 | XRAY ---
CLINICAL HISTORY: tachycarida, abnormal chest xray, P TECHNIQUE: Contiguous 3.[address] images of the chest were acquired with contrast. Coronal and sagittal reconstructions were obtained. COMPARISON: CR 10/16/2023 FINDINGS: The right hemidiaphragm is raised with an upward displacement of the liver and associated minimal right basal atelectasis, likely representing eventration. The rest of the scanned pulmonary parenchyma appears unremarkable. No free or encysted pleural effusion. Heart size is normal, and there is no pericardial effusion. No pathologically enlarged mediastinal, hilar, or axillary lymph node was identified. The thoracic spine shows degenerative changes. There is no definite mass lesion in the chest wall. Please refer to the abdomen report for respective findings. IMPRESSION: Raised right hemidiaphragm with an upward displacement of liver and associated minimal right basal atelectasis, likely representing eventration. Electronically Signed by: Greg Ignacio MD. (10/17/2023 00:11:30 EST)
--- NOTE | 2023-10-17 00:27 | XRAY ---
CLINICAL HISTORY: pain TECHNIQUE: A CT scan of the abdomen and pelvis was performed with IV contrast. Coronal and sagittal reconstructive images were also obtained. COMPARISON: None FINDINGS: Raised right hemidiaphragm with an upward displacement of the liver. Abdomen: The liver is of average size. No focal or diffuse parenchymal abnormality. The portal vein, intrahepatic biliary radicals, and the bile ducts are normal. The gallbladder is distended. There is no evidence of wall thickening/ pericholecystic collection. The spleen, pancreas, and adrenal glands are unremarkable. The kidneys are normal in size and shape. No calculi or hydronephrosis. The appendix appears normal in caliber. No significant fat stranding in right iliac fossa region. The ascending colon, the transverse colon, the descending colon, visualized small bowel loops are unremarkable. There are a few sub-centimetric mesenteric and peripancreatic lymph nodes. Normal appearinf appendix. Pelvis: The urinary bladder is unremarkable. The rectosigmoid colon is unremarkable. The uterus appears unremarkable. Bilateral ovaries appear slightly bulky. No evidence of pelvic lymphadenopathy. Dextroscoliosis of thoracolumbar spine noted. IMPRESSION: No significant acute abnormality was detected in the CT abdomen and pelvis. Subcentimetric mesenteric and peripancreatic lymph nodes, appear to be non-specific. Bilateral slightly bulky ovaries recommended non-emergent ultrasound correlation. Dextroscoliosis of the thoracolumbar spine. Electronically Signed by: Greg Ignacio MD. (10/17/2023 00:22:44 EST)
[2023-10-17 00:59] VITALS: O2SAT 98
[2023-10-17 02:14] VITALS: BP 116/76; PULSE 112; RESP 20
== END 2023-10-17 01:30 | disposition home or self-care (01) ==
LOC: ED 18:02
DX: Q79.1 Other congenital malformations of diaphragm (principal); R07.9 Chest pain, unspecified; R51.9 Headache, unspecified; Z28.310 Unvaccinated for COVID-19
CPT/HCPCS: 36000; 36415; 71045; 71260; 74177; 80053; 84484; 84703; 85025; 85379; 93005; 93041; 94760; 96360; 99284; A9270-GY

== ENCOUNTER 2023-12-16 06:20 | Emergency (ER) | payer BC, OTHER ==
[2023-12-16 06:30] VITALS: TEMP 98.4
[2023-12-16] MEDS ORDERED: DUONEB 0.5-3 MG/3 ml Neb IH ONE (06:44)
[2023-12-16] MEDS: DUONEB 0.5-3 MG/3 ml Neb IH ONE (06:46)
--- NOTE | 2023-12-16 06:46 | ERPHSYRPT ---
- History of Present Illness Source: patient Exam Limitations: no limitations Timing/Duration: other (3 months) Cough Quality/Degree: moderate, dry cough Possible Cause: frequent episodes, chronic episodes Modifying Factors: Improves With: nothing Associated Symptoms: chest pain/soreness, cough, headache, shortness of breath, wheezing, No fever, No chills, No nasal congestion, No nasal drainage, No sore throat Hx Tetanus, Diphtheria Vaccination/Date Given: No Hx Influenza Vaccination/Date Given: No Hx Pneumococcal Vaccination/Date Given: No <KATHE CRONIN - Last Filed: 12/16/23 07:05> <CHELLE ROBB - Last Filed: 12/16/23 11:34> - History of Present Illness Time Seen by Provider: 12/16/23 06:30 Physician History: 28yo f presents via private vehicle for 3mo cough that has worsened over the past 2d. Pt states she has hx of asthma. Pt states the cough has been keeping her from sleeping the past 2 nights. Pt describes the cough as dry, non- productive, does endorse some wheezing and occasional post-tussive emesis. Pt reports some pleuritic chest discomfort from prolonged coughing worse on the left. Pt currently denies cp, n/v/abdominal pain. Denies smoking, denies exposure to toxic aerosolized substances. (KATHE CRONIN) Allergies/Adverse Reactions: No Known Drug Allergies Allergy (Verified 12/16/23 06:39) Home Medications: Albuterol 8 gm Mdi Hfa [Ventolin Hfa MDI] 2 puffs IH Q6H PRN PRN 12/16/23 [History] - Review of Systems Constitutional: No Symptoms Respiratory: Cough, Wheezing, No Cyanosis, No Dyspnea, No Stridor Cardiac: No Symptoms, No Chest Pain, No Edema, No Palpitations, No Syncope Abdominal/Gastrointestinal: No Symptoms <KATHE CRONIN - Last Filed: 12/16/23 07:05> - Past Medical History Pertinent Past Medical History: Yes Neurological History: No Pertinent History ENT History: No Pertinent History Respiratory History: Asthma Endocrine Medical History: No Pertinent History, Hypothyroidism Musculoskeletal History: No Pertinent History GI Medical History: No Pertinent History History: No Pertinent History Psycho-Social History: Depression Female Reproductive Disorders: No Pertinent History Other Medical History: ear problems - Past Surgical History Past Surgical History: Yes Neuro Surgical History: Other Cardiac: No Pertinent History Respiratory: No Pertinent History Gastrointestinal: No Pertinent History Genitourinary: No Pertinent History Musculoskeletal: No Pertinent History Female Surgical History: No Pertinent History Other Surgical History: 4 ear surgeries Significant Family History: no pertinent family hx - Female History Hx Now: No - Social History Smoking Status: Never smoker Exposure to second hand smoke: No Alcohol Use: None Drug Use: none Patient Lives Alone: No <MEHRDADKATHE GERALD Liv Lennon Filed: 12/16/23 07:05> - Physical Exam General Appearance: no apparent distress, alert Ears, Nose, Throat Exam: normal ENT inspection Respiratory Exam: airway intact, wheezing (diffuse wheezes - expiratory), No chest tenderness, No respiratory distress, No diminished breath sounds, No crackles/rales Cardiovascular Exam: normal heart sounds, normal peripheral pulses, tachycardia, capillary refill <2 sec, No edema Gastrointestinal/Abdomen Exam: soft, No tenderness, No distention Neurologic Exam: alert, oriented x 3, cooperative SpO2 Interpretation: normal SpO2: 98 O2 Delivery: Room Air <KATHE CRONIN Filed: 12/16/23 07:05> - Nursing Vital Signs Nursing Vital Signs: Initial Vital Signs Temperature 98.4 F 12/16/23 06:22 Pulse Rate 124 H 12/16/23 06:22 Respiratory Rate 18 12/16/23 06:22 Blood Pressure 109/85 12/16/23 06:22 O2 Sat by Pulse Oximetry 98 12/16/23 06:22 Pain Scale Pain Intensity 5 - Course EKG Interpreted by Me: RATE (125), Sinus Tach, NORMAL ST-T, Other (qtcb 423; not suggestive of ischemia) <KATHE CRONIN GERALD Liv Lennon Filed: 12/16/23 07:05> Ordered Tests: Active Orders 24 hr Category Date Time Status IV Insertion STAT Care 12/16/23 06:29 Active CHEST 2 VIEWS (PA AND LAT) Stat Exams 12/16/23 06:30 Completed CHEST WITH CONTRAST [CT] Stat Exams 12/16/23 07:03 Completed CBC W DIFF Stat Lab 12/16/23 07:00 Completed CMP Stat Lab 12/16/23 07:00 Completed Lactic Acid Stat Lab 12/16/23 09:35 Completed PROCALCITONIN Stat Lab 12/16/23 07:00 Completed TROPONIN Q3H Lab 12/16/23 07:00 Completed TROPONIN Q3H Lab 12/16/23 10:00 Completed TROPONIN Q3H Lab 12/16/23 14:00 Ordered TROPONIN Q3H Lab 12/16/23 17:00 Ordered TSH [TSH, 3RD Generation] Stat Lab 12/16/23 07:00 Completed Urine Triage Profile Stat Lab 12/16/23 Ordered Respiratory Therapy Assessment DAILY RT 12/16/23 06:49 Active Medication Summary Discontinued Medications Generic Name Dose Route Start Last Admin Trade Name Gordon PRN Reason Stop Dose Admin Albuterol/Ipratropium 3 ml 12/16/23 06:29 12/16/23 06:46 Ipratropium/Albuterol Sulfate 3 Ml Ampul.Neb IH 12/16/23 06:30 3 ml STAT ONE Administration Albuterol/Ipratropium Confirm 12/16/23 06:44 Ipratropium/Albuterol Sulfate 3 Ml Ampul.Neb Administered 12/16/23 06:45 Dose 3 ml IH .STK-MED ONE Methylprednisolone Sodium 0 mg 12/16/23 09:11 12/16/23 09:19 Succinate 125 mg/ Sterile IV 12/16/23 09:12 125 mg Water 2 ml STAT ONE Administration Guaifenesin/Codeine Phosphate Confirm 12/16/23 07:45 Guaifenesin/Codeine Phosphate 5 Ml Udcup Administered 12/16/23 07:46 Dose 10 ml .ROUTE .STK-MED ONE Guaifenesin/Dextromethorphan 10 ml 12/16/23 06:29 12/16/23 07:55 Guaifenesin/D-Methorphan Hb 118 Ml Syrup PO 12/16/23 06:30 10 ml STAT ONE Administration Sodium Chloride 1,000 mls @ 999 mls/hr 12/16/23 06:29 12/16/23 09:09 Sodium Chloride 0.9% 1000 Ml IV 12/16/23 07:29 Infused .Q1H1M STA Infusion Sodium Chloride Confirm 12/16/23 07:45 Sodium Chloride 0.9% 1000 Ml Administered 12/16/23 07:46 Dose 1,000 mls @ ud .ROUTE .STK-MED ONE Lorazepam 2 mg 12/16/23 09:24 12/16/23 09:43 Lorazepam 1 Mg Tablet PO 12/16/23 09:25 2 mg STAT ONE Administration Lorazepam Confirm 12/16/23 09:42 Lorazepam 1 Mg Tablet Administered 12/16/23 09:43 Dose 2 mg .ROUTE .STK-MED ONE Methylprednisolone Sodium Succinate Confirm 12/16/23 09:19 Methylprednis Sod Succ 125 Mg/2 Ml Vial Administered 12/16/23 09:20 Dose 125 mg .ROUTE .STK-MED ONE Sterile Water Confirm 12/16/23 09:19 Water For Injection,Sterile 10 Ml Vial Administered 12/16/23 09:20 Dose 10 ml IJ .STK-MED ONE Lab/Rad Data: Laboratory Result Diagrams 12/16/23 07:00 12/16/23 07:00 Laboratory Results 12/16/23 12/16/23 12/16/23 Range/Units 10:00 09:35 07:00 WBC (4.0-10.5) x10^3/uL RBC (4.1-5.4) x10^6/uL Hgb (12.0-16.0) g/dL Hct (35-47) % MCV (78-100) fL MCH (26-32) pg MCHC (32-36) g/dL RDW (11.5-14.0) % Plt Count (150-450) x10^3/uL MPV (7.5-11.0) fL Gran % (36.0-66.0) % Immature Gran % (Auto) (0.00-0.4) % Nucleat RBC Rel Count (0.00-0.1) % Eos # (Auto) (0-0.5) x10^3/uL Immature Gran # (Auto) (0.00-0.03) x10^3u/L Absolute Lymphs (auto) (1.0-4.6) x10^3/uL Absolute Monos (auto) (0.0-1.3) x10^3/uL Absolute Nucleated RBC (0.00-0.01) x10^3u/L Lymphocytes % (24.0-44.0) % Monocytes % (0.0-12.0) % Eosinophils % (0.00-5.0) % Basophils % (0.0-0.4) % Absolute Granulocytes (1.4-6.9) x10^3/uL Basophils # (0-0.4) x10^3/uL Sodium (135-145) mmol/L Potassium (3.5-5.1) mmol/L Chloride (98-107) mmol/L Carbon Dioxide (22-30) mmol/L Anion Gap (5-15) MEQ/L BUN (7-17) mg/dL Creatinine (0.52-1.04) mg/dL Estimated GFR ML/MIN Glucose (74-106) mg/dL Lactic Acid 1.4 (0.4-2.0) Calcium (8.4-10.2) mg/dL Total Bilirubin (0.2-1.3) mg/dL AST (14-36) U/L ALT (0-35) U/L Alkaline Phosphatase (38-126) U/L Troponin I < 0.012 (0.000-0.034) ng/mL Serum Total Protein (6.3-8.2) g/dL Albumin (3.5-5.0) g/dL Procalcitonin 0.033 (0.030-0.080) ng/mL TSH 3rd Generation (0.47-4.68) mIU/L Influenza Type A Ag (NEGATIVE) Influenza Type B Ag (NEGATIVE) RSV (PCR) (NEGATIVE) SARS-CoV-2 (PCR) (NEGATIVE) 12/16/23 12/16/23 12/16/23 Range/Units 07:00 07:00 07:00 WBC (4.0-10.5) x10^3/uL RBC (4.1-5.4) x10^6/uL Hgb (12.0-16.0) g/dL Hct (35-47) % MCV (78-100) fL MCH (26-32) pg MCHC (32-36) g/dL RDW (11.5-14.0) % Plt Count (150-450) x10^3/uL MPV (7.5-11.0) fL Gran % (36.0-66.0) % Immature Gran % (Auto) (0.00-0.4) % Nucleat RBC Rel Count (0.00-0.1) % Eos # (Auto) (0-0.5) x10^3/uL Immature Gran # (Auto) (0.00-0.03) x10^3u/L Absolute Lymphs (auto) (1.0-4.6) x10^3/uL Absolute Monos (auto) (0.0-1.3) x10^3/uL Absolute Nucleated RBC (0.00-0.01) x10^3u/L Lymphocytes % (24.0-44.0) % Monocytes % (0.0-12.0) % Eosinophils % (0.00-5.0) % Basophils % (0.0-0.4) % Absolute Granulocytes (1.4-6.9) x10^3/uL Basophils # (0-0.4) x10^3/uL Sodium 140 (135-145) mmol/L Potassium 3.9 (3.5-5.1) mmol/L Chloride 106 (98-107) mmol/L Carbon Dioxide 28 (22-30) mmol/L Anion Gap 10.4 (5-15) MEQ/L BUN 13 (7-17) mg/dL Creatinine 0.88 (0.52-1.04) mg/dL Estimated GFR 92.3 ML/MIN Glucose 111 H (74-106) mg/dL Lactic Acid (0.4-2.0) Calcium 9.2 (8.4-10.2) mg/dL Total Bilirubin 0.20 (0.2-1.3) mg/dL AST 38 H (14-36) U/L ALT 34 (0-35) U/L Alkaline Phosphatase 86 (38-126) U/L Troponin I < 0.012 (0.000-0.034) ng/mL Serum Total Protein 7.1 (6.3-8.2) g/dL Albumin 3.8 (3.5-5.0) g/dL Procalcitonin (0.030-0.080) ng/mL TSH 3rd Generation 7.990 H (0.47-4.68) mIU/L Influenza Type A Ag (NEGATIVE) Influenza Type B Ag (NEGATIVE) RSV (PCR) (NEGATIVE) SARS-CoV-2 (PCR) (NEGATIVE) 12/16/23 12/16/23 Range/Units 07:00 06:50 WBC 13.2 H (4.0-10.5) x10^3/uL RBC 4.30 (4.1-5.4) x10^6/uL Hgb 12.1 (12.0-16.0) g/dL Hct 38.1 (35-47) % MCV 88.6 (78-100) fL MCH 28.1 (26-32) pg MCHC 31.8 L (32-36) g/dL RDW 13.5 (11.5-14.0) % Plt Count 285 (150-450) x10^3/uL MPV 10.1 (7.5-11.0) fL Gran % 55.2 (36.0-66.0) % Immature Gran % (Auto) 0.3 (0.00-0.4) % Nucleat RBC Rel Count 0.0 (0.00-0.1) % Eos # (Auto) 1.57 H (0-0.5) x10^3/uL Immature Gran # (Auto) 0.04 H (0.00-0.03) x10^3u/L Absolute Lymphs (auto) 3.26 (1.0-4.6) x10^3/uL Absolute Monos (auto) 1.01 (0.0-1.3) x10^3/uL Absolute Nucleated RBC 0.00 (0.00-0.01) x10^3u/L Lymphocytes % 24.7 (24.0-44.0) % Monocytes % 7.6 (0.0-12.0) % Eosinophils % 11.9 H (0.00-5.0) % Basophils % 0.3 (0.0-0.4) % Absolute Granulocytes 7.30 H (1.4-6.9) x10^3/uL Basophils # 0.04 (0-0.4) x10^3/uL Sodium (135-145) mmol/L Potassium (3.5-5.1) mmol/L Chloride (98-107) mmol/L Carbon Dioxide (22-30) mmol/L Anion Gap (5-15) MEQ/L BUN (7-17) mg/dL Creatinine (0.52-1.04) mg/dL Estimated GFR ML/MIN Glucose (74-106) mg/dL Lactic Acid (0.4-2.0) Calcium (8.4-10.2) mg/dL Total Bilirubin (0.2-1.3) mg/dL AST (14-36) U/L ALT (0-35) U/L Alkaline Phosphatase (38-126) U/L Troponin I (0.000-0.034) ng/mL Serum Total Protein (6.3-8.2) g/dL Albumin (3.5-5.0) g/dL Procalcitonin (0.030-0.080) ng/mL TSH 3rd Generation (0.47-4.68) mIU/L Influenza Type A Ag NEGATIVE (NEGATIVE) Influenza Type B Ag NEGATIVE (NEGATIVE) RSV (PCR) NEGATIVE (NEGATIVE) SARS-CoV-2 (PCR) NEGATIVE (NEGATIVE) - Progress Air Movement: good <KATHE CRONIN - Last Filed: 12/16/23 07:05> - Progress Progress: improved, re-examined Air Movement: good Antibiotics given: No Counseled pt/family regarding: lab results, diagnosis, need for follow-up, rad results <CHELLE ROBB - Last Filed: 12/16/23 11:34> - Progress Progress Note: 12/16/23 06:51 given duoneb tx, started 1L NS bolus 12/16/23 07:05 CTA chest ordered for further eval of tachycardia I discussed pt w/ Dr Robb, he will assume care at this time (KATHE CRONIN) Patient is checked out to me at shift change with pending workup. Patient presented with dry cough for the last 3 weeks. Patient EKG showed sinus tach with no acute ST elevation. Negative troponins x 2. Patient has negative CTA for PE or any other acute findings. Patient continues to remain tachycardic. She was very anxious and I have given her Ativan which helped with her anxiety and also improved tachycardia and heart rate in low 100s. She received DuoNeb and a fluid bolus as well as Solu-Medrol. Has a white count of 13 with a normal lactate and procalcitonin. I believe patient has viral bronchitis with some element of reactive airway disease, I will give her a short course of steroids and have her outpatient follow-up. Do not think patient needs further workup in the emergency room, discussed signs symptoms of worsening needing return to ER which she seems understanding. Stable for discharge. 12/16/23 11:27 (CHELLE ROBB) Medical Desision Making - Independent Historian Additional History obtained from: Relative/friend - Diagnostic Testing Diagnostic test were ordered, analyzed, and reviewed by me: Yes Radiological Interpretation: Interpreted by me, Reviewed by me, Teleradiologist Report - Risk of complications The pt has a mod risk of morbidity or mortality based on: Need for prescription drug management <CHELLE ROBB - Last Filed: 12/16/23 11:34> <KATHE CRONIN - Last Filed: 12/16/23 07:05> - Departure Departure Disposition: Home Critical Care Time: No <CHELLE ROBB - Last Filed: 12/16/23 11:34> - Departure Clinical Impression: Viral bronchitis Condition: Stable Referrals: AMADOU HODGSON NP [Primary Care Provider] - Follow up with PCP 1 day Instructions: Asthma, Adult (DC) Prescriptions: Prednisone 20 mg [Deltasone 20 mg] 60 mg PO DAILY 5 Days #15 tablet Hydrocodone/Acetaminophen [Hydrocodone-Acetamin 2.5-108/5 ml Solution] 10 ml PO TID PRN 5 Days #90 ml MDD 40ml PRN Reason: Cough
[2023-12-16 07:18] LABS: BASOPHIL % 0.3 % (0.0-0.4); Basophil (Absolute #) 0.04 x10^3/uL (0-0.4); Eosinophil % 11.9 % (0.00-5.0); Eosinophil (Absolute #) 1.57 x10^3/uL (0-0.5); Hematocrit 38.1 % (35-47); Hemoglobin 12.1 g/dL (12.0-16.0); IMMATURE GRAN # 0.04 x10^3u/L (0.00-0.03); IMMATURE GRAN % 0.3 % (0.00-0.4); Lymphocyte (Absolute #) 3.26 x10^3/uL (1.0-4.6); Lymphocytes % 24.7 % (24.0-44.0); Mean Cell Volume 88.6 fL (78-100); Mean Corpuscular Hemoglobin 28.1 pg (26-32); Mean Corpuscular Hgb Concent. 31.8 g/dL (32-36); Mean Platelet Volume 10.1 fL (7.5-11.0); Monocyte (Absolute #) 1.01 x10^3/uL (0.0-1.3); Monocytes % 7.6 % (0.0-12.0); Neutrophil % 55.2 % (36.0-66.0); Platelet Count 285 x10^3/uL (150-450); Red Cell Distribution Width 13.5 % (11.5-14.0); White Blood Count 13.2 x10^3/uL (4.0-10.5)
[2023-12-16 07:31] LABS: ALBUMIN 3.8 g/dL (3.5-5.0); ANION GAP 10.4 MEQ/L (5-15); BILIRUBIN,TOTAL 0.2 mg/dL (0.2-1.3); Calcium 9.2 mg/dL (8.4-10.2); Creatinine 1 0.88 mg/dL (0.52-1.04); EST GLOMERULAR FILTRATION RATE 92.3 ML/MIN; Potassium 3.9 mmol/L (3.5-5.1); Total Protein 7.1 g/dL (6.3-8.2)
[2023-12-16 07:33] LABS: INFLUENZA A NEGATIVE (NEGATIVE); INFLUENZA B NEGATIVE (NEGATIVE); RESPIRATORY SYNCTIAL VIRUS NEGATIVE (NEGATIVE); SARS-CoV-2 Xpert Express NEGATIVE (NEGATIVE)
[2023-12-16] MEDS ORDERED: Sodium Chloride 0.9% 1000 ML 1,000 ML ONE (07:45)
[2023-12-16] MEDS ORDERED: Robitussin AC Syrup Unit Dose Cup ONE (07:45)
[2023-12-16] MEDS: Sodium Chloride 0.9% 1000 ML 1,000 ML IV STA (07:46)
[2023-12-16] MEDS: Robitussin-Dm Syrup PO ONE (07:55)
--- NOTE | 2023-12-16 08:43 | XRAY ---
CLINICAL HISTORY: tachycardic, sob TECHNIQUE: Contiguous axial images were obtained from the neck base through the upper abdomen without and following intravenous administration of contrast material. If IV contrast material had not been administered, the likelihood of detecting abnormalities relevant to the patient's condition would have been substantially decreased. In addition, sagittal and coronal reconstructions were performed. CT scan was performed according to ALARA (as low as reasonable achievable). COMPARISON: 16/10/2023 FINDINGS: The right hemidiaphragm is raised with an upward displacement of the liver and associated minimal right basal atelectasis, likely representing eventration. The rest of the scanned pulmonary parenchyma appears unremarkable. No free or encysted pleural effusion. Heart size is normal, and there is no pericardial effusion. No pathologically enlarged mediastinal, hilar, or axillary lymph node was identified. The thoracic spine shows degenerative changes. There is no definite mass lesion in the chest wall. Please refer to the abdomen report for respective findings. IMPRESSION: 1.Raised right hemidiaphragm with an upward displacement of liver and associated minimal right basal atelectasis, likely eventration. No new findings. Electronically Signed by: Nicolás Rodas MD. (12/16/2023 08:38:01 EDT)
--- NOTE | 2023-12-16 08:57 | XRAY ---
Indication: Cough. Comparison: October 16, 2023 PA/lateral chest again demonstrates normal heart, lungs, and bony thorax. Mild right hemidiaphragm elevation, less than before. No new/acute findings.
[2023-12-16] MEDS ORDERED: Sterile H2O 10 ml IJ ONE (09:19)
[2023-12-16] MEDS ORDERED: solu-MEDROL ONE (09:19)
[2023-12-16] MEDS: solu-MEDROL 125 MG, Sterile H2O 10 ml 2 ML IV ONE (09:19)
[2023-12-16] MEDS ORDERED: Ativan 1 MG ONE (09:42)
[2023-12-16] MEDS: Ativan 1 MG PO ONE (09:43)
[2023-12-16 11:22] VITALS: BP 118/63
[2023-12-16 11:26] VITALS: PULSE 113; RESP 20; O2SAT 96
== END 2023-12-16 11:48 | disposition home or self-care (01) ==
LOC: ED 06:20
DX: J20.8 Acute bronchitis due to other specified organisms (principal); R05.3 Chronic cough; Z79.52 Long term (current) use of systemic steroids; Z79.891 Long term (current) use of opiate analgesic; Z79.899 Other long term (current) drug therapy
CPT/HCPCS: 0241U; 36000; 36415; 71046; 71260; 80053; 83605; 84145; 84443; 84484; 85025; 94640; 96374; 99284; 96375; J2930; A9270-GY

== ENCOUNTER 2024-07-08 21:40 | Emergency (ER) | payer BC, OTHER ==
[2024-07-08 22:04] VITALS: TEMP 97.8
[2024-07-08 22:19] LABS: Absolute Neutrophil Ct (ANC) 5.57 x10^3/uL (1.56-6.13); BASOPHIL % 0.3 % (0.1-1.2); Basophil (Absolute #) 0.03 x10^3/uL (0.01-0.08); Eosinophil % 7.8 % (0.7-5.8); Eosinophil (Absolute #) 0.74 x10^3/uL (0.04-0.36); Hemoglobin 12.2 g/dL (11.2-15.7); IMMATURE GRAN # 0.03 x10^3u/L (0.001-0.031); IMMATURE GRAN % 0.3 % (0.001-0.429); Lymphocyte (Absolute #) 2.28 x10^3/uL (1.18-3.74); Lymphocytes % 24.1 % (19.3-51.7); Mean Cell Volume 87.4 fL (79.4-94.8); Mean Corpuscular Hgb Concent. 32.1 g/dL (32.2-35.5); Mean Platelet Volume 10.6 fL (9.4-12.3); Monocyte (Absolute #) 0.82 x10^3/uL (0.24-0.86); Monocytes % 8.7 % (4.7-12.5); Neutrophil % 58.8 % (34.0-71.1); Platelet Count 246 x10^3/uL (182-369); Red Blood Count 4.35 x10^6/uL (3.93-5.22); Red Cell Distribution Width 13.2 % (11.7-14.4); White Blood Count 9.5 x10^3/uL (3.98-10.04)
[2024-07-08 22:27] LABS: Appearance Cloudy (Clear); Bacteria Moderate /HPF (None Seen); Bilirubin Negative (Negative); Blood Negative (Negative); Epithelial Cells Moderate /HPF (None Seen); Glucose, Urine Negative (Negative); Hyaline Casts NONE SEEN /LPF (0-2); Ketones Negative (Negative); Leukocyte Esterase Moderate (Negative); Nitrite Negative (Negative); Ph 5.5 (4.6-8.0); Protein,Urine Dip Negative (Negative); RBC 0-2 /HPF (0-5); Urobilinogen 0.2 mg/dL (0.2)
--- NOTE | 2024-07-08 22:46 | ERPHSYRPT ---
- History of Present Illness Time Seen by Provider: 07/08/24 22:41 Source: patient Exam Limitations: no limitations Patient Subjective Stated Complaint: c/o of lower abdomen and back cramping Triage Nursing Assessment: pt brought to ED by mother with c/o of lower abdomen and back pain. Rates pain 3/10 and states it's a constant cramping pain. Patoent that for the past 3 days she has also had a sharp pain in her right lower abdomen. Patient is currently and thinks she is about 8 weeks accroding to her last menstrual period. last BM today aroun 1600, bowel sounds present in all 4 quads, no pain upon palpation, denies difficulty urinating but states she has had diffculty passing stools for a couple weeks. Patient is tachycardic, skin w/n/d, gait steady, pt doesnlt appear to be in any distress at this time. Physician History: 29-year-old female G1, P0 currently 8 weeks via dates presents to our ED for evaluation of pelvic cramps. Patient rates her cramping as 3 out of 10. Symptoms started approximately 3 days ago. Symptoms have been constant. No vaginal discharge no vaginal bleeding no foul odor. Patient concerned with viability of . Patient otherwise feels well. No nausea no vomiting no diarrhea no rash no fever. Mother at bedside. They voiced no other complaints or concerns at this time. Portions of this note were created with voice recognition technology. There may be grammatical, spelling, punctuation or sound alike errors Timing/Duration: day(s) (3 days) Severity: moderate Modifying Factors: Improves With: nothing Associated Symptoms: denies symptoms Allergies/Adverse Reactions: No Known Drug Allergies Allergy (Verified 07/08/24 22:04) Home Medications: Albuterol 8 gm Mdi Hfa [Ventolin Hfa MDI] 2 puffs IH Q6H PRN PRN 12/16/23 [History] Pnv No.95/Ferrous Fum/Folic AC [ Caplet] 1 tab PO DAILY 07/08/24 [History] Hx Tetanus, Diphtheria Vaccination/Date Given: No Hx Influenza Vaccination/Date Given: No Hx Pneumococcal Vaccination/Date Given: No Travel Risk - International Travel Have you traveled outside of the country in past 3 weeks: No - Emerging Infectious Disease Are you exhibiting symptoms associated with any current EIDs: Yes Symptoms: Cough: New Onset, Diarrhea, Headaches/Body Aches/, Shortness of Breath - Review of Systems Constitutional: No Symptoms, No Fever, No Chills Eyes: No Symptoms Ears, Nose, & Throat: No Symptoms Respiratory: No Symptoms, No Cough, No Dyspnea Cardiac: No Symptoms, No Chest Pain, No Edema, No Syncope Abdominal/Gastrointestinal: No Symptoms, No Abdominal Pain, No Nausea, No Vomiting, No Diarrhea Genitourinary Symptoms: No Symptoms, No Dysuria Musculoskeletal: No Symptoms, No Back Pain, No Neck Pain Skin: No Symptoms, No Rash Neurological: No Symptoms, No Dizziness, No Focal Weakness, No Sensory Changes Psychological: No Symptoms Endocrine: No Symptoms Hematologic/Lymphatic: No Symptoms Immunological/Allergic: No Symptoms All Other Systems: Reviewed and Negative - Past Medical History Pertinent Past Medical History: Yes Neurological History: No Pertinent History ENT History: No Pertinent History Respiratory History: Asthma Endocrine Medical History: No Pertinent History, Hypothyroidism Musculoskeletal History: No Pertinent History GI Medical History: No Pertinent History History: No Pertinent History Psycho-Social History: Depression Female Reproductive Disorders: No Pertinent History Other Medical History: ear problems - Past Surgical History Past Surgical History: Yes Neuro Surgical History: Other Cardiac: No Pertinent History Respiratory: No Pertinent History Gastrointestinal: No Pertinent History Genitourinary: No Pertinent History Musculoskeletal: No Pertinent History Female Surgical History: No Pertinent History Other Surgical History: 4 ear surgeries Significant Family History: no pertinent family hx - Female History Hx Last Menstrual Period: patient is currently 8 weeks Hx Now: Yes Gestational Age: 8 weeks - Social History Smoking Status: Never smoker Exposure to second hand smoke: No Alcohol Use: None Drug Use: none Patient Lives Alone: No - Social Determinants of Health Will the patient participate in the screening: Yes Do you worry about a steady place to live?: No Do you have any problems with any of the following?: No known problems In the past 12 months,have you had to go without utilities?: No Transportation Issues: No Has anyone in your support network made you feel unsafe?: No Have you or anyone in your house had to go without enough: No - Nursing Vital Signs Nursing Vital Signs: Initial Vital Signs Temperature 97.8 F 07/08/24 21:48 Pulse Rate 103 H 07/08/24 21:48 Respiratory Rate 18 07/08/24 21:48 Blood Pressure 133/66 07/08/24 21:48 Pain Scale Pain Intensity 3 - Physical Exam General Appearance: no apparent distress, alert Eye Exam: PERRL/EOMI, eyes nml inspection Ears, Nose, Throat Exam: normal ENT inspection, moist mucous membranes Neck Exam: normal inspection, full range of motion Respiratory Exam: normal breath sounds, lungs clear, No respiratory distress Cardiovascular Exam: regular rate/rhythm, normal heart sounds, normal peripheral pulses Gastrointestinal/Abdomen Exam: soft, normal bowel sounds, No tenderness, No mass Pelvic Exam: normal external exam, No adnexal tenderness, No adnexal mass, No mass, No cervical motion tenderness, No vaginal bleeding Back Exam: normal inspection, normal range of motion, No CVA tenderness, No vertebral tenderness Extremity Exam: normal inspection, normal range of motion, pelvis stable Neurologic Exam: alert, oriented x 3, cooperative, normal mood/affect, nml cerebellar function, nml station & gait, sensation nml, No motor deficits Skin Exam: normal color, warm, dry, No rash Lymphatic Exam: No adenopathy SpO2 Interpretation: normal SpO2: 100 O2 Delivery: Room Air - Course Nursing assessment & vital signs reviewed: Yes - Radiology Ultrasound Exam OB Ultrasound: tele radiology report (Per assistant professor of surgery 8-week IUP observed. heart tone are appropriate for age. No complications observed) Ordered Tests: Active Orders 24 hr Category Date Time Status OB <14 WKS 1ST GESTATION [US] Stat Exams 07/08/24 22:09 Taken CBC W DIFF Stat Lab 07/08/24 22:15 Completed CMP Stat Lab 07/08/24 22:15 Completed CULTURE,URINE Stat Lab 07/08/24 22:10 Received HCG, Quantitative (Inhouse) Stat Lab 07/08/24 22:15 Completed UA W/RFX UR CULTURE Stat Lab 07/08/24 22:10 Completed Medication Summary Discontinued Medications Generic Name Dose Route Start Last Admin Trade Name Freq PRN Reason Stop Dose Admin Nitrofurantoin Macrocrystals 100 mg 07/09/24 00:01 07/09/24 00:13 Nitrofurantoin Macro 100 Mg Capsule PO 07/09/24 00:02 100 mg STAT ONE Administration Nitrofurantoin Macrocrystals Confirm 07/09/24 00:13 Nitrofurantoin Macro 100 Mg Capsule Administered 07/09/24 00:14 Dose 100 mg .ROUTE .STK-MED ONE Lab/Rad Data: Laboratory Result Diagrams 07/08/24 22:15 07/08/24 22:15 Laboratory Results 07/08/24 07/08/24 07/08/24 Range/Units Unknown 22:15 22:15 WBC 9.5 (3.98-10.04) x10^3/uL RBC 4.35 (3.93-5.22) x10^6/uL Hgb 12.2 (11.2-15.7) g/dL Hct 38.0 (34.1-44.9) % MCV 87.4 (79.4-94.8) fL MCH 28.0 (25.6-32.2) pg MCHC 32.1 L (32.2-35.5) g/dL RDW 13.2 (11.7-14.4) % Plt Count 246 (182-369) x10^3/uL MPV 10.6 (9.4-12.3) fL Gran % 58.8 (34.0-71.1) % Immature Gran % (Auto) 0.3 (0.001-0.429) % Nucleat RBC Rel Count 0.0 (0.00-0.2) % Eos # (Auto) 0.74 H (0.04-0.36) x10^3/uL Immature Gran # (Auto) 0.03 (0.001-0.031) x10^3u/L Absolute Lymphs (auto) 2.28 (1.18-3.74) x10^3/uL Absolute Monos (auto) 0.82 (0.24-0.86) x10^3/uL Absolute Nucleated RBC 0.00 (0.00-0.012) x10^3u/L Lymphocytes % 24.1 (19.3-51.7) % Monocytes % 8.7 (4.7-12.5) % Eosinophils % 7.8 H (0.7-5.8) % Basophils % 0.3 (0.1-1.2) % Absolute Granulocytes 5.57 (1.56-6.13) x10^3/uL Basophils # 0.03 (0.01-0.08) x10^3/uL Sodium 137 (135-145) mmol/L Potassium 3.9 (3.5-5.1) mmol/L Chloride 105 (98-107) mmol/L Carbon Dioxide 22 (22-30) mmol/L Anion Gap 13.5 (5-15) MEQ/L BUN 13 (7-17) mg/dL Creatinine 0.62 (0.52-1.04) mg/dL Estimated GFR 124.3 ML/MIN Glucose 91 (74-106) mg/dL Calcium 9.3 (8.4-10.2) mg/dL Total Bilirubin 0.20 (0.2-1.3) mg/dL AST 30 (14-36) U/L ALT 29 (0-35) U/L Alkaline Phosphatase 82 (38-126) U/L Serum Total Protein 7.2 (6.3-8.2) g/dL Albumin 4.0 (3.5-5.0) g/dL Beta HCG, Quant [id number] mIU/ml Urine Color (Yellow) Urine Appearance (Clear) Urine pH (4.6-8.0) Ur Specific Massey (1.005-1.030) Urine Protein (Negative) Urine Glucose (UA) (Negative) mg/dL Urine Ketones (Negative) Urine Blood (Negative) Urine Nitrite (Negative) Urine Bilirubin (Negative) Urine Urobilinogen (0.2) mg/dL Ur Leukocyte Esterase (Negative) U Hyaline Cast (Auto) (0-2) /LPF Urine Microscopic RBC (0-5) /HPF Urine Microscopic WBC (0-5) /HPF Ur Epithelial Cells (None Seen) /HPF Urine Bacteria (None Seen) /HPF Urine Culture Reflexed (NO) Chlamydia DNA Probe NOT DETECTED (NEGATIVE) N.gonorrhoeae DNA Probe NOT DETECTED (NEGATIVE) 07/08/24 Range/Units 22:10 WBC (3.98-10.04) x10^3/uL RBC (3.93-5.22) x10^6/uL Hgb (11.2-15.7) g/dL Hct (34.1-44.9) % MCV (79.4-94.8) fL MCH (25.6-32.2) pg MCHC (32.2-35.5) g/dL RDW (11.7-14.4) % Plt Count (182-369) x10^3/uL MPV (9.4-12.3) fL Gran % (34.0-71.1) % Immature Gran % (Auto) (0.001-0.429) % Nucleat RBC Rel Count (0.00-0.2) % Eos # (Auto) (0.04-0.36) x10^3/uL Immature Gran # (Auto) (0.001-0.031) x10^3u/L Absolute Lymphs (auto) (1.18-3.74) x10^3/uL Absolute Monos (auto) (0.24-0.86) x10^3/uL Absolute Nucleated RBC (0.00-0.012) x10^3u/L Lymphocytes % (19.3-51.7) % Monocytes % (4.7-12.5) % Eosinophils % (0.7-5.8) % Basophils % (0.1-1.2) % Absolute Granulocytes (1.56-6.13) x10^3/uL Basophils # (0.01-0.08) x10^3/uL Sodium (135-145) mmol/L Potassium (3.5-5.1) mmol/L Chloride (98-107) mmol/L Carbon Dioxide (22-30) mmol/L Anion Gap (5-15) MEQ/L BUN (7-17) mg/dL Creatinine (0.52-1.04) mg/dL Estimated GFR ML/MIN Glucose (74-106) mg/dL Calcium (8.4-10.2) mg/dL Total Bilirubin (0.2-1.3) mg/dL AST (14-36) U/L ALT (0-35) U/L Alkaline Phosphatase (38-126) U/L Serum Total Protein (6.3-8.2) g/dL Albumin (3.5-5.0) g/dL Beta HCG, Quant mIU/ml Urine Color Yellow (Yellow) Urine Appearance Cloudy A (Clear) Urine pH 5.5 (4.6-8.0) Ur Specific Massey 1.020 (1.005-1.030) Urine Protein Negative (Negative) Urine Glucose (UA) Negative (Negative) mg/dL Urine Ketones Negative (Negative) Urine Blood Negative (Negative) Urine Nitrite Negative (Negative) Urine Bilirubin Negative (Negative) Urine Urobilinogen 0.2 (0.2) mg/dL Ur Leukocyte Esterase Moderate A (Negative) U Hyaline Cast (Auto) NONE SEEN (0-2) /LPF Urine Microscopic RBC 0-2 (0-5) /HPF Urine Microscopic WBC 11-20 A (0-5) /HPF Ur Epithelial Cells Moderate A (None Seen) /HPF Urine Bacteria Moderate A (None Seen) /HPF Urine Culture Reflexed YES (NO) Chlamydia DNA Probe (NEGATIVE) N.gonorrhoeae DNA Probe (NEGATIVE) - Progress Progress: improved Progress Note: 29-year-old female G1, P0 presents to our ED with pelvic cramping. Physical exam reveals mild pelvic pain. Pelvic exam within normal limits. Ultrasound reveals 8-week old IUP with good heart tones. No complications. Laboratory workup/beta quant is commensurate with gestational age. GC chlamydia negative. UA significant for UTI. Patient received an oral dose of Macrobid. A prescription for the same forwarded to patient's pharmacy. Vaginal panel results pending. Will discharge home. We will follow-up on the badge panel results and contact patient of any abnormalities. Mother at bedside. They voi ford no other complaints or concerns at this time. Portions of this note were created with voice recognition technology. There may be grammatical, spelling, punctuation or sound alike errors Complexity of problem addressed is moderate acute complicated. No critical care time. Complexity of data reviewed and analyzed is moderate. Test ordered chest reviewed results analyzed and correlated clinically with history and physical exam. Risk of complication and or risk of morbidity/mortality of patient management is moderate. A prescription for Macrobid forwarded to patient's pharmacy. Vital stable. Time spent to discharge patient is approximately 20 minutes. Plan of care established for shared decision making. No social determinants of health present to impede follow-up. Portions of this note were created with voice recognition technology. There may be grammatical, spelling, punctuation or sound alike errors 07/09/24 00:55 Counseled pt/family regarding: lab results, diagnosis, need for follow-up, rad results - Departure Departure Disposition: Home Clinical Impression: Pelvic cramping, Urinary tract infection Condition: Stable Critical Care Time: No Referrals: AMADOU HODGSON NP [Primary Care Provider] - Follow up/PCP as directed Additional Instructions: Discharge/Care Plan BRANDI PHAM was seen on 07/09/24 in the Emergency Room. The patient was counseled regarding Diagnosis,Lab results, Imaging studies, need for follow up and when to return to the Emergency Room. Prescriptions given: Discharge Note I have spoken with the patient and/or caregivers. I have explained the patient's condition, diagnosis and treatment plan based on the information available to me at this time. I have answered the patient's and/or caregiver's questions and add ressed any concerns. The patient and/or caregivers have as good understanding of the patient's diagnosis, condition and treatment plan as can be expected at this point. The vital signs have been stable. The patient's condition is stable and appropriate for discharge from the emergency department. The patient will pursue further outpatient evaluation with the primary care physician or other designated or consulting physician as outlined in the discharge instructions. The patient and/or caregivers are agreeable to this plan of care and follow-up instructions have been explained in detail. The patient and/or caregivers have received these instruction. The patient/and or caregivers are aware that any significant change in condition or worsening of symptoms should prompt an immediate return to this or the closest emergency department or call 911. Prescriptions: Nitrofurantoin Macro 100 mg [Macrobid 100MG Capsule] 100 mg PO BID #14 cap
[2024-07-08 22:49] LABS: ANION GAP 13.5 MEQ/L (5-15); BILIRUBIN,TOTAL 0.2 mg/dL (0.2-1.3); Calcium 9.3 mg/dL (8.4-10.2); Creatinine 1 0.62 mg/dL (0.52-1.04); EST GLOMERULAR FILTRATION RATE 124.3 ML/MIN; Potassium 3.9 mmol/L (3.5-5.1); Total Protein 7.2 g/dL (6.3-8.2)
[2024-07-08 23:50] LABS: CHLAMYDIA DNA NOT DETECTED (NEGATIVE); GC DNA Probe NOT DETECTED (NEGATIVE)
[2024-07-09] MEDS: Macrobid 100MG Capsule PO ONE (00:13)
[2024-07-09] MEDS ORDERED: Macrobid 100MG Capsule ONE (00:13)
[2024-07-09 01:04] VITALS: BP 118/66; PULSE 95; RESP 18; O2SAT 98
[2024-07-09 01:48] LABS: Candida Group NOT DETECTED (NEGATIVE); Candida glab/krus NOT DETECTED (NEGATIVE)
--- NOTE | 2024-07-09 09:25 | XRAY ---
Indication: with cramping. Two-dimensional transvaginal early OB ultrasound performed. Comparison: None Single intrauterine gestational sac with single pole. Mean sac diameter is 3.31 cm corresponding to 8 weeks 3 days. Mean crown-rump length is 1.58 cm corresponding to 8 weeks 0 days. heart rate 153 bpm. No abnormal subchorionic fluid. Cervical length is 3.8 cm. Left and right ovaries are sonographically unremarkable. Impression: Single viable intrauterine measuring 8 weeks 2 days. Expected date confinement is February 15, 2025. No acute findings. Comment: Preliminary report was given.
== END 2024-07-09 01:06 | disposition home or self-care (01) ==
LOC: ED 21:40
DX: R10.2 Pelvic and perineal pain (principal); O23.41 Unspecified infection of urinary tract in pregnancy, first trimester; N39.0 Urinary tract infection, site not specified; Z3A.08 8 weeks gestation of pregnancy; Z79.899 Other long term (current) drug therapy
CPT/HCPCS: 36415; 76801; 80053; 81001; 84702; 85025; 87086; 87481; 87491; 87591; 87661; 87801; 99283; A9270-GY

== ENCOUNTER 2024-09-19 11:18 | Emergency (ER) | payer BC, OTHER ==
--- NOTE | 2024-09-19 11:28 | ERPHSYRPT ---
- History of Present Illness Time Seen by Provider: 09/19/24 11:27 Source: patient, family Exam Limitations: no limitations Physician History: This is a 29-year-old white female patient of nurse practitioner Hakeem who is 18 weeks by ultrasound that was performed on 07/08/2024. This ultrasound showed single viable intrauterine with date of confinement of 02/15/2025. This morning, the patient was having some upper abdominal pain with 1 episode of vomiting as well as suprapubic cramping and some vaginal bleeding. Patient did have sexual intercourse last evening. At that time the pain was sharp and cramping. However, she does not have pain at the time of this examination and evaluation. Timing/Duration: today Activites at Onset: sexual activity (Sexual course last evening. Symptoms began this morning) Quality: aching, cramping Onset Location: other (Bilateral upper quadrants and epigastric region) Severity of Pain-Max: moderate Severity of Pain-Current: none Sexual intercourse history: other (Sexual intercourse last evening) Modifying Factors: Improves With: vomiting (Once this morning) Associated Symptoms: vomiting (This morning), vaginal discharge (Vaginal bleeding) Allergies/Adverse Reactions: No Known Drug Allergies Allergy (Verified 09/19/24 11:43) Home Medications: Albuterol 8 gm Mdi Hfa [Ventolin Hfa MDI] 2 puffs IH Q6H PRN PRN 12/16/23 [History] Pnv No.95/Ferrous Fum/Folic AC [ Caplet] 1 tab PO DAILY 07/08/24 [History] Hx Tetanus, Diphtheria Vaccination/Date Given: No Hx Influenza Vaccination/Date Given: No Hx Pneumococcal Vaccination/Date Given: No Travel Risk - International Travel Have you traveled outside of the country in past 3 weeks: No - Emerging Infectious Disease Are you exhibiting symptoms associated with any current EIDs: Yes Symptoms: Cough: New Onset, Diarrhea, Headaches/Body Aches/, Shortness of Breath - Review of Systems Constitutional: No Symptoms Eyes: No Symptoms Ears, Nose, & Throat: No Symptoms Respiratory: No Symptoms Cardiac: No Symptoms Abdominal/Gastrointestinal: Abdominal Pain (This morning. None now), Vomiting ( Vomited once this morning) Genitourinary Symptoms: Vaginal Bleeding Musculoskeletal: No Symptoms Skin: No Symptoms Neurological: No Symptoms Psychological: No Symptoms Endocrine: No Symptoms Hematologic/Lymphatic: No Symptoms Immunological/Allergic: No Symptoms All Other Systems: Reviewed and Negative - Past Medical History Pertinent Past Medical History: Yes Neurological History: No Pertinent History ENT History: No Pertinent History Respiratory History: Asthma Endocrine Medical History: No Pertinent History, Hypothyroidism Musculoskeletal History: No Pertinent History GI Medical History: No Pertinent History History: No Pertinent History Psycho-Social History: Depression Female Reproductive Disorders: No Pertinent History Other Medical History: ear problems - Past Surgical History Past Surgical History: Yes Neuro Surgical History: Other Cardiac: No Pertinent History Respiratory: No Pertinent History Gastrointestinal: No Pertinent History Genitourinary: No Pertinent History Musculoskeletal: No Pertinent History Female Surgical History: No Pertinent History Other Surgical History: 4 ear surgeries Significant Family History: no pertinent family hx - Female History Hx Last Menstrual Period: patient is currently 8 weeks - Social History Smoking Status: Never smoker Exposure to second hand smoke: No Alcohol Use: None Drug Use: none Patient Lives Alone: No - Social Determinants of Health Will the patient participate in the screening: Yes Do you worry about a steady place to live?: No In the past 12 months,have you had to go without utilities?: No Transportation Issues: No Has anyone in your support network made you feel unsafe?: No Have you or anyone in your house had to go without enough: No - Nursing Vital Signs Nursing Vital Signs: Initial Vital Signs Temperature 97 F 09/19/24 11:42 Pulse Rate 111 H 09/19/24 11:42 Respiratory Rate 18 09/19/24 11:42 Blood Pressure 119/69 09/19/24 11:42 O2 Sat by Pulse Oximetry 98 09/19/24 11:42 Pain Scale Pain Intensity 0 - Physical Exam General Appearance: no apparent distress, alert, anxiety Eye Exam: PERRL/EOMI, eyes nml inspection Ears, Nose, Throat Exam: normal ENT inspection, moist mucous membranes Neck Exam: normal inspection, non-tender, supple, full range of motion Respiratory Exam: normal breath sounds, lungs clear, No chest tenderness, No respiratory distress Cardiovascular Exam: tachycardia Gastrointestinal/Abdomen Exam: soft, normal bowel sounds, No tenderness Pelvic Exam: not done Rectal Exam: not done Back Exam: normal inspection, normal range of motion, No CVA tenderness, No vertebral tenderness Extremity Exam: normal inspection, normal range of motion, pelvis stable Neurologic Exam: alert, oriented x 3, cooperative, 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, sensation nml Skin Exam: normal color, warm, dry Lymphatic Exam: No adenopathy SpO2 Interpretation: normal O2 Delivery: Room Air - Course Nursing assessment & vital signs reviewed: Yes Ordered Tests: Active Orders 24 hr Category Date Time Status OB LIMITED [US] Stat Exams 09/19/24 11:31 Completed CBC W DIFF Stat Lab 09/19/24 11:59 Completed CMP Stat Lab 09/19/24 11:59 Completed CULTURE,URINE Stat Lab 09/19/24 12:30 Received UA W/RFX UR CULTURE Stat Lab 09/19/24 12:30 Completed Lab/Rad Data: Laboratory Result Diagrams 09/19/24 11:59 09/19/24 11:59 Laboratory Results 09/19/24 09/19/24 09/19/24 Range/Units 12:30 11:59 11:59 WBC 8.1 (3.98-10.04) x10^3/uL RBC 4.31 (3.93-5.22) x10^6/uL Hgb 12.3 (11.2-15.7) g/dL Hct 36.7 (34.1-44.9) % MCV 85.2 (79.4-94.8) fL MCH 28.5 (25.6-32.2) pg MCHC 33.5 (32.2-35.5) g/dL RDW 13.5 (11.7-14.4) % Plt Count 235 (182-369) x10^3/uL MPV 10.8 (9.4-12.3) fL Gran % 67.5 (34.0-71.1) % Immature Gran % (Auto) 0.9 H (0.001-0.429) % Nucleat RBC Rel Count 0.0 (0.00-0.2) % Eos # (Auto) 0.35 (0.04-0.36) x10^3/uL Immature Gran # (Auto) 0.07 H (0.001-0.031) x10^3u/L Absolute Lymphs (auto) 1.46 (1.18-3.74) x10^3/uL Absolute Monos (auto) 0.74 (0.24-0.86) x10^3/uL Absolute Nucleated RBC 0.00 (0.00-0.012) x10^3u/L Lymphocytes % 18.0 L (19.3-51.7) % Monocytes % 9.1 (4.7-12.5) % Eosinophils % 4.3 (0.7-5.8) % Basophils % 0.2 (0.1-1.2) % Absolute Granulocytes 5.49 (1.56-6.13) x10^3/uL Basophils # 0.02 (0.01-0.08) x10^3/uL Sodium 135 (135-145) mmol/L Potassium 3.8 (3.5-5.1) mmol/L Chloride 108 H (98-107) mmol/L Carbon Dioxide 21 L (22-30) mmol/L Anion Gap 10.0 (5-15) MEQ/L BUN 4 L (7-17) mg/dL Creatinine 0.57 (0.52-1.04) mg/dL Estimated GFR 126.9 ML/MIN Glucose 93 (74-106) mg/dL Calcium 9.1 (8.4-10.2) mg/dL Total Bilirubin 0.20 (0.2-1.3) mg/dL AST 35 (14-36) U/L ALT 35 (0-35) U/L Alkaline Phosphatase 86 (38-126) U/L Serum Total Protein 6.8 (6.3-8.2) g/dL Albumin 3.7 (3.5-5.0) g/dL Urine Color Kidder A (Yellow) Urine Appearance Clear (Clear) Urine pH 6.5 (4.6-8.0) Ur Specific Paloma 1.010 (1.005-1.030) Urine Protein 30 (Negative) Urine Glucose (UA) Negative (Negative) mg/dL Urine Ketones Negative (Negative) Urine Blood Large A (Negative) Urine Nitrite Negative (Negative) Urine Bilirubin Negative (Negative) Urine Urobilinogen 0.2 (0.2) mg/dL Ur Leukocyte Esterase Trace A (Negative) U Hyaline Cast (Auto) NONE SEEN (0-2) /LPF Urine Microscopic RBC >100 A (0-5) /HPF Urine Microscopic WBC 0-2 (0-5) /HPF Ur Epithelial Cells Few (None Seen) /HPF Urine Bacteria None Seen (None Seen) /HPF Urine Culture Reflexed YES (NO) - Progress Progress: improved, re-examined Air Movement: good Progress Note: 09/19/24 12:07 My medical decision making and the assignment of moderate complexity to this patient's medical issue today is based on review of the patient's past medical history, review the patient's medication list, reviewed patient drug allergy list, history present illness and physical findings on examination. The workup in this patient includes placement of a intravenous line, CBC, CMP, urinalysis, OB ultrasound greater than 14 weeks Differential diagnosis includes but is not limited to trauma from sexual intercourse last night, urinary tract infection, intrauterine/ abnormality 09/19/24 13:05 The radiologist interpreted the OB ultrasound. The impression states single viable intrauterine . heart tones 148 bpm. Posterior placenta with inferior tip low-lying. No abnormal retroplacental fluid. No acute f indings 09/19/24 13:10 I interpreted the patient's laboratory data results. Based on the laboratory data results, the patient does not have any acute, emergent medical issue. I am not convinced the patient has a urinary tract infection we will wait for the cultures to determine if the patient requires any antibiotics. Blood Culture(s) Obtained: No Counseled pt/family regarding: lab results, diagnosis, need for follow-up, rad results Medical Desision Making - Independent Historian Additional History obtained from: Spouse - Diagnostic Testing Diagnostic test were ordered, analyzed, and reviewed by me: Yes Radiological Interpretation: Reviewed by me, Teleradiologist Report - Risk of complications Low Risk: Low risk of morbidity from additional dx testing or treatment - Departure Departure Disposition: Home Clinical Impression: Vaginal bleeding before 22 weeks gestation Condition: Stable Critical Care Time: No Referrals: AMADOU HODGSON NP [Primary Care Provider] - Follow up/PCP as directed Additional Instructions: Drink plenty of fluids. Call your health information systems technician today, 09/19/2024, to make arrangements for follow-up appointment to be seen in the next 3 to 5 days. Avoid sexual intercourse until after you discuss with your health information systems technician. Continue your vitamins.
[2024-09-19 11:43] VITALS: RESP 18; TEMP 97
[2024-09-19 11:59] LABS: Absolute Neutrophil Ct (ANC) 5.49 x10^3/uL (1.56-6.13); BASOPHIL % 0.2 % (0.1-1.2); Basophil (Absolute #) 0.02 x10^3/uL (0.01-0.08); Eosinophil % 4.3 % (0.7-5.8); Eosinophil (Absolute #) 0.35 x10^3/uL (0.04-0.36); Hematocrit 36.7 % (34.1-44.9); Hemoglobin 12.3 g/dL (11.2-15.7); IMMATURE GRAN # 0.07 x10^3u/L (0.001-0.031); IMMATURE GRAN % 0.9 % (0.001-0.429); Lymphocyte (Absolute #) 1.46 x10^3/uL (1.18-3.74); Mean Cell Volume 85.2 fL (79.4-94.8); Mean Corpuscular Hemoglobin 28.5 pg (25.6-32.2); Mean Corpuscular Hgb Concent. 33.5 g/dL (32.2-35.5); Mean Platelet Volume 10.8 fL (9.4-12.3); Monocyte (Absolute #) 0.74 x10^3/uL (0.24-0.86); Monocytes % 9.1 % (4.7-12.5); Neutrophil % 67.5 % (34.0-71.1); Platelet Count 235 x10^3/uL (182-369); Red Blood Count 4.31 x10^6/uL (3.93-5.22); Red Cell Distribution Width 13.5 % (11.7-14.4); White Blood Count 8.1 x10^3/uL (3.98-10.04)
[2024-09-19 12:13] LABS: ALBUMIN 3.7 g/dL (3.5-5.0); BILIRUBIN,TOTAL 0.2 mg/dL (0.2-1.3); Calcium 9.1 mg/dL (8.4-10.2); Creatinine 1 0.57 mg/dL (0.52-1.04); EST GLOMERULAR FILTRATION RATE 126.9 ML/MIN; Potassium 3.8 mmol/L (3.5-5.1); Total Protein 6.8 g/dL (6.3-8.2)
--- NOTE | 2024-09-19 12:39 | XRAY ---
Indication: Cramping and vaginal bleeding. Limited OB ultrasound performed. Comparison: July 08, 2024 Again single viable intrauterine with heart rate 148 BPM. Four-quadrant KENNEDY is 8.6 cm. Posterior placenta with inferior tip low lying. No abnormal retroplacental fluid. No acute findings.
[2024-09-19 12:57] LABS: Appearance Clear (Clear); Bacteria None Seen /HPF (None Seen); Bilirubin Negative (Negative); Blood Large (Negative); Epithelial Cells Few /HPF (None Seen); Glucose, Urine Negative (Negative); Hyaline Casts NONE SEEN /LPF (0-2); Ketones Negative (Negative); Leukocyte Esterase Trace (Negative); Nitrite Negative (Negative); Ph 6.5 (4.6-8.0); Protein,Urine Dip 30 (Negative); RBC >100 /HPF (0-5); Urobilinogen 0.2 mg/dL (0.2); WBC 0-2 /HPF (0-5)
[2024-09-19 13:13] VITALS: BP 109/71; PULSE 99; O2SAT 97
== END 2024-09-19 13:18 | disposition home or self-care (01) ==
LOC: ED 11:18
DX: O20.9 Hemorrhage in early pregnancy, unspecified (principal); Z3A.08 8 weeks gestation of pregnancy
CPT/HCPCS: 36415; 76815; 80053; 81001; 85025; 87086; 99284

== ENCOUNTER 2025-06-14 09:06 | Emergency (ER) | payer OTHER ==
[2025-06-14 09:24] VITALS: TEMP 97.9
--- NOTE | 2025-06-14 09:48 | ERPHSYRPT ---
- History of Present Illness Time Seen by Provider: 06/14/25 09:20 Source: patient Exam Limitations: no limitations Patient Subjective Stated Complaint: patient has had left ear infection x 2 weeks, patient has been on prednisone, given a steroid shot, and is currently using neomycin/polymyxin B Sulfates w/ Hydrocortisone Otic Solution. patient still on the prednisone and ear drops prescribed by [facility], patient noticed large amount of swelling behind left ear this morning and some swelling to the anterior portion of left ear. pain is tolerable Triage Nursing Assessment: patient has had left ear infection x 2 weeks, patient has been on prednisone, given a steroid shot, and is currently using neomycin/polymyxin B Sulfates w/ Hydrocortisone Otic Solution. patient still on the prednisone and ear drops prescribed by [facility], patient noticed large amount of swelling behind left ear this morning and some swelling to the anterior portion of left ear. pain is tolerable Physician History: Patient is a 30-year-old female history of asthma, hypothyroidism tubal ligation mastoiditis cholesteatoma presents to our ED for evaluation of treatment of swelling to the posterior ear and tenderness at the mastoid bone. Patient states her symptoms started 2 weeks ago. She [facility] up at [facility] as well as a [facility] in [place]. Patient states that she was treated with a shot of steroids. Patient was also given neomycin/polymyxin B with hydrocortisone otic solution. Patient states her symptoms of gotten progressively worse. Her left posterior ear is swelling and is now tender. No trauma no fever. Patient reports a history of mastoiditis with a Phyllis steel Cathie of the right ear. Patient had surgery to remedy these 2 right ear problems. Patient otherwise feels well. No headache no neck pain. No fever. No photophobia no nuchal rigidity no meningeal signs. Patient voices no other complaints or concerns at this time. Portions of this note were created with voice recognition technology. There may be grammatical, spelling, punctuation or sound alike errors Timing/Duration: week(s) (2 weeks) Severity: moderate Associated Symptoms: denies symptoms Allergies/Adverse Reactions: No Known Drug Allergies Allergy (Verified 06/14/25 09:14) Home Medications: Albuterol 8 gm Mdi Hfa [Ventolin Hfa MDI] 2 puffs IH Q6H PRN PRN 12/16/23 [History] Pnv No.95/Ferrous Fum/Folic AC [ Caplet] 1 tab PO DAILY 07/08/24 [History] Cetirizine HCl [All Day Allergy Relief] 10 mg PO DAILY 06/14/25 [History] Montelukast Sodium 10 mg PO DAILY 06/14/25 [History] Nico/Baci/Poly/Hc Ear Solution* [CORTISPORIN EAR DROPS Solution 1OML] 2 drop OP DAILY 06/14/25 [History] Prednisone 20 mg [Deltasone 20 mg] 20 mg PO DAILY 06/14/25 [History] Hx Tetanus, Diphtheria Vaccination/Date Given: No Hx Influenza Vaccination/Date Given: No Hx Pneumococcal Vaccination/Date Given: No Travel Risk - International Travel Have you traveled outside of the country in past 3 weeks: No - Emerging Infectious Disease Are you exhibiting symptoms associated with any current EIDs: No Symptoms: Cough: New Onset, Diarrhea, Headaches/Body Aches/, Shortness of Breath - Review of Systems All Other Systems: Reviewed and Negative - Past Medical History Pertinent Past Medical History: Yes Neurological History: No Pertinent History ENT History: No Pertinent History Respiratory History: Asthma Endocrine Medical History: No Pertinent History, Hypothyroidism Musculoskeletal History: No Pertinent History GI Medical History: No Pertinent History History: No Pertinent History Psycho-Social History: Depression Female Reproductive Disorders: No Pertinent History Other Medical History: ear problems - Past Surgical History Past Surgical History: Yes Neuro Surgical History: Other Cardiac: No Pertinent History Respiratory: No Pertinent History Gastrointestinal: No Pertinent History Genitourinary: No Pertinent History Musculoskeletal: No Pertinent History Female Surgical History: No Pertinent History, Tubal Ligation Other Surgical History: ear surgery for masstoid, cholestiotoma Significant Family History: no pertinent family hx - Female History Hx Last Menstrual Period: patient is currently 8 weeks Hx Now: No - Social History Smoking Status: Never smoker Exposure to second hand smoke: No Drug Use: none - Social Determinants of Health Will the patient participate in the screening: Yes Do you worry about a steady place to live?: No Do you have any problems with any of the following?: No known problems In the past 12 months,have you had to go without utilities?: No Transportation Issues: No Has anyone in your support network made you feel unsafe?: No Have you or anyone in your house had to go w/o enough food: No - Nursing Vital Signs Nursing Vital Signs: Initial Vital Signs Temperature 97.9 F 06/14/25 09:07 Pulse Rate 79 06/14/25 09:07 Respiratory Rate 16 06/14/25 09:07 Blood Pressure 137/88 06/14/25 09:07 O2 Sat by Pulse Oximetry 99 06/14/25 09:07 Pain Scale Pain Intensity 5 - Physical Exam General Appearance: no apparent distress, alert Eye Exam: PERRL/EOMI, eyes nml inspection Ears, Nose, Throat Exam: normal ENT inspection, TMs normal, pharynx normal, moist mucous membranes, other (Left mastoid tenderness and swelling. Patient appears to have mastoiditis clinically) Neck Exam: normal inspection, non-tender, supple, full range of motion Respiratory Exam: normal breath sounds, airway intact, No respiratory distress Cardiovascular Exam: regular rate/rhythm, normal heart sounds, normal peripheral pulses Gastrointestinal/Abdomen Exam: No tenderness, No mass Back Exam: normal inspection, normal range of motion, No CVA tenderness, No vertebral tenderness Extremity Exam: normal inspection, normal range of motion, pelvis stable Neurologic Exam: alert, oriented x 3, cooperative, normal mood/affect, sensation nml, No motor deficits Skin Exam: normal color, warm, dry, No rash Lymphatic Exam: No adenopathy SpO2 Interpretation: normal SpO2: 97 O2 Delivery: Room Air - Course Nursing assessment & vital signs reviewed: Yes Ordered Tests: Active Orders 24 hr Category Date Time Status IV Insertion STAT Care 06/14/25 11:31 Active FACIAL BONES WO CONTRAST [CT] Stat Exams 06/14/25 09:42 Completed CBC W DIFF Stat Lab 06/14/25 12:25 Completed CMP Stat Lab 06/14/25 12:25 Completed Medication Summary Discontinued Medications Generic Name Dose Route Start Last Admin Trade Name Freq PRN Reason Stop Dose Admin Ceftriaxone Sodium 1 gm in 100 mls @ 200 mls/hr 06/14/25 11:32 06/14/25 12:37 Rocephin 1 Gm / 100 Ml Nacl IV 06/14/25 12:01 Infused STAT ONE Infusion Ceftriaxone Sodium Confirm 06/14/25 11:43 Rocephin 1 Gm / 100 Ml Nacl Administered 06/14/25 11:44 Dose 1 gm in 100 mls @ ud IV .STK-MED ONE Lab/Rad Data: Laboratory Result Diagrams 06/14/25 12:25 06/14/25 12:25 Laboratory Results 06/14/25 06/14/25 Range/Units 12:25 12:25 WBC 18.7 H (3.98-10.04) x10^3/uL RBC 4.08 (3.93-5.22) x10^6/uL Hgb 11.0 L (11.2-15.7) g/dL Hct 35.6 (34.1-44.9) % MCV 87.3 (79.4-94.8) fL MCH 27.0 (25.6-32.2) pg MCHC 30.9 L (32.2-35.5) g/dL RDW 15.2 H (11.7-14.4) % Plt Count 343 (182-369) x10^3/uL MPV 10.2 (9.4-12.3) fL Gran % 86.0 H (34.0-71.1) % Immature Gran % (Auto) 0.9 H (0.001-0.429) % Nucleat RBC Rel Count 0.0 (0.00-0.2) % Eos # (Auto) 0.19 (0.04-0.36) x10^3/uL Immature Gran # (Auto) 0.16 H (0.001-0.031) x10^3u/L Absolute Lymphs (auto) 1.39 (1.18-3.74) x10^3/uL Absolute Monos (auto) 0.82 (0.24-0.86) x10^3/uL Absolute Nucleated RBC 0.00 (0.00-0.012) x10^3u/L Lymphocytes % 7.5 L (19.3-51.7) % Monocytes % 4.4 L (4.7-12.5) % Eosinophils % 1.0 (0.7-5.8) % Basophils % 0.2 (0.1-1.2) % Absolute Granulocytes 16.05 H (1.56-6.13) x10^3/uL Basophils # 0.04 (0.01-0.08) x10^3/uL Sodium 143 (135-145) mmol/L Potassium 3.4 L (3.5-5.1) mmol/L Chloride 112 H (98-107) mmol/L Carbon Dioxide 21 L (22-30) mmol/L Anion Gap 13.7 (5-15) MEQ/L BUN 21 H (7-17) mg/dL Creatinine 0.67 (0.52-1.04) mg/dL Estimated GFR 121.3 ML/MIN Glucose 87 (74-106) mg/dL Calcium 8.3 L (8.4-10.2) mg/dL Total Bilirubin 0.40 (0.2-1.3) mg/dL AST 37 H (14-36) U/L ALT 66 H (0-35) U/L Alkaline Phosphatase 123 (38-126) U/L Serum Total Protein 7.1 (6.3-8.2) g/dL Albumin 3.8 (3.5-5.0) g/dL - Progress Progress: improved Progress Note: Patient accepted by Dr. Palacio ENT at [facility]. Dr. Palacio excepted patient at 12:27 PM. It will be an ER to ER transfer. Plan of care discussed with patient. She agrees to transfer to [facility] for further evaluation and treatment. Portions of this note were created with voice recognition technology. There may be grammatical, spelling, punctuation or sound alike errors 06/14/25 12:30 Patient is a 30-year-old female history of asthma, hypothyroidism tubal ligation mastoiditis cholesteatoma presents to our ED for evaluation of treatment of swelling to the posterior ear and tenderness at the mastoid bone. Physical exam reveals mastoid tenderness. CT scan reveals a otomastoiditis with an abscess. Rocephin administered. Patient declined pain medication. Patient will be transferred for further evaluation and treatment. History obtained from patient. Differential diagnosis includes cholesteatoma, mastoiditis, otitis, deep space abscess, cellulitis Portions of this note were created with voice recognition technology. There may be grammatical, spelling, punctuation or sound alike errors Complexity of problems addressed is moderate acute complicated. No critical care time. Complex of data reviewed and analyzed is extensive. Test ordered chest reviewed results analyzed and correlated clinically with history and physical exam. Risk of complication and or risk of morbidity/mortality of patient management is high. Patient requires transfer to higher level of care. Vital stable. Time spent to transfer patient is approximately 20 minutes. Plan of care established for shared decision making. No social determinants of health present to impede follow-up. Portions of this note were created with voice recognition technology. There may be grammatical, spelling, punctuation or sound alike errors 06/14/25 15:16 Counseled pt/family regarding: diagnosis - Departure Departure Disposition: Transfer Clinical Impression: Otomastoiditis, Abscess Condition: Stable Critical Care Time: No Referrals: AMADOU PALACIO NP [Primary Care Provider, [facility]] - Follow up/PCP as directed
--- NOTE | 2025-06-14 11:01 | XRAY ---
CLINICAL HISTORY: Left mastoid pain COMPARISON: None. TECHNIQUE: Non-contrast CT scan of the paranasal sinuses/facial bones was performed, with sagittal and coronal multiplanar reconstruction. One of the following dose reduction techniques was utilized for this exam: automated exposure control; adjustment of the mA and/or kV according to patient size; and use of iterative reconstruction. FINDINGS: Temporal bones: Defective lateral frank of the mastoid air cells and nonvisualized right middle ear ossicles, likely related to prior operative intervention. Marked opacification of the left mastoid air cells and middle ear cleft with overlying heterogeneous subcutaneous soft tissue density (3.5 x 2.5 cm), inducing contour bulge with stranding of the fat planes. Inferior translation of the left middle ear ossicles. Hypoaerated, minimally opacified right mastoid air cells. Sinuses: Mild mucosal thickening of the left maxillary and ethmoidal sinuses with no fluid levels. The other paranasal sinuses are clear. Osteomeatal complexes are partially compromised by mucosal thickening. Nasal Cavity: Right-sided nasal septum deviation with bone spur. Hypertrophied right inferior nasal turbinate. Bilateral middle cinda bullosa. No masses or polyps. Orbits: The orbits are normal in size and shape. Extraocular muscles and optic nerves are normal. No evidence of orbital masses or proptosis. Maxilla and Mandible: Normal appearance of the maxillary and mandibular bones. No fractures, lytic, or sclerotic lesions. Normal dentition without significant periodontal disease. Facial Bones: No fractures or deformities. Zygomatic arches, nasal bones, and other facial structures are intact. Soft Tissues: The soft tissues of the face are otherwise normal. Bilateral deep cervical small reactionary lymph nodes. Salivary Glands: Parotid, submandibular, and sublingual glands are normal. No evidence of sialadenitis or masses. Temporomandibular Joints (TMJ): Normal appearance of the TMJ bilaterally. No evidence of joint effusion, degenerative changes, or dislocation. IMPRESSION: 1. Defective lateral frank of the mastoid air cells and nonvisualized right middle ear ossicles are likely related to prior operative intervention. 2. Marked opacification of the left mastoid air cells and middle ear cleft with overlying heterogeneous subcutaneous soft tissue density (3.5 x 2.5 cm), inducing contour bulge with stranding of the fat planes. Findings likely represent marked otomastoiditis with overlying Bezold abscess; advise contrast MRI correlation. 3. Inferior translation of the left middle ear ossicles. 4. Hypoaerated, minimally opacified right mastoid air cells. 5. Mild left maxillary and ethmoidal sinusitis. Electronically Signed by: Bernardino Martinez MD. (06/14/2025 10:59:56 EDT)
[2025-06-14] MEDS ORDERED: ROCEPHIN 1 GM / 100 ML NaCl 1 GM/100 ML IVPB IV ONE (11:43)
[2025-06-14] MEDS: ROCEPHIN 1 GM / 100 ML NaCl 1 GM/100 ML IVPB IV ONE (11:44)
[2025-06-14 12:36] LABS: BASOPHIL % 0.2 % (0.1-1.2); Basophil (Absolute #) 0.04 x10^3/uL (0.01-0.08); Eosinophil (Absolute #) 0.19 x10^3/uL (0.04-0.36); Hematocrit 35.6 % (34.1-44.9); Hemoglobin 11.0 g/dL (11.2-15.7); IMMATURE GRAN # 0.16 x10^3u/L (0.001-0.031); IMMATURE GRAN % 0.9 % (0.001-0.429); Lymphocyte (Absolute #) 1.39 x10^3/uL (1.18-3.74); Mean Corpuscular Hemoglobin 27.0 pg (25.6-32.2); Mean Corpuscular Hgb Concent. 30.9 g/dL (32.2-35.5); Monocyte (Absolute #) 0.82 x10^3/uL (0.24-0.86); NUCLEATED RBC # 0.00 x10^3u/L (0.00-0.012); NUCLEATED RBC % 0.0 % (0.00-0.2); Platelet Count 343 x10^3/uL (182-369); Red Blood Count 4.08 x10^6/uL (3.93-5.22); White Blood Count 18.7 x10^3/uL (3.98-10.04)
[2025-06-14 12:50] LABS: Calcium 8.3 mg/dL (8.4-10.2); Carbon Dioxide 21.0 mmol/L (22-30); Creatinine 1 0.67 mg/dL (0.52-1.04); EST GLOMERULAR FILTRATION RATE 121.3 ML/MIN; Glucose 87.0 mg/dL (74-106); Potassium 3.4 mmol/L (3.5-5.1); SGOT/AST 37.0 U/L (14-36); SGPT/ALT 66.0 U/L (0-35); Total Protein 7.1 g/dL (6.3-8.2)
[2025-06-14 14:18] VITALS: PULSE 92
[2025-06-14 15:18] VITALS: O2SAT 97
[2025-06-14 15:22] VITALS: BP 117/79; RESP 12
== END 2025-06-14 15:18 | disposition short-term general hospital (02) ==
LOC: ED 09:06
DX: H70.002 Acute mastoiditis without complications, left ear (principal); H92.02 Otalgia, left ear; Z79.899 Other long term (current) drug therapy